=== PATIENT | male | born 1940 | race Caucasian/White ===

== ENCOUNTER 2018-06-17 17:00 | Inpatient (IN) | payer MEDICARE, MEDICAID ==
[~2018-06-17] VITALS: Ht 170.2 cm; Wt 83.2 kg
[2018-06-17] MEDS ORDERED: FUROSEMIDE20 MG PO (17:10)
[2018-06-17 20:01] LABS: BASOPHILS 0.2 % (0-2); EOSINOPHILS 0.1 % (0-7); HEMATOCRIT 33.7 % (42.0-54.0); HEMOGLOBIN 11.2 g/dL (13.5-17.5); IMMATURE GRANULOCYTES 0.2 % (0-5); LYMPHOCYTES 8.9 % (15-50); MCHC 33.2 g/dL (31.0-37.0); MCV 87.3 fL (80.0-100.0); MEAN PLATELET VOLUME 12.2 fL (7.4-10.4); MONOCYTES 4.7 % (2-11); NEUTROPHILS 85.9 % (40-80); PLATELET COUNT 178 10x3/uL (130-400); RBC 3.86 10x6/uL (4.20-6.10); RDW 14.8 % (11.5-14.5); WBC 12.1 10x3/uL (4.8-10.8)
[2018-06-17 20:18] LABS: ALBUMIN 3.5 g/dL (3.4-5.0); BILIRUBIN - TOTAL 0.46 mg/dL (0.2-1.3); CALCIUM 8.7 mg/dL (8.5-10.1); CARBON DIOXIDE 27.1 mmol/L (21.0-32.0); CREATININE - SERUM 4.3 mg/dL (0.6-1.3)
[2018-06-17 20:28] LABS: ANION GAP 14.1 mmol/L (8-16); PROTEIN - SERUM 3.5 g/dL (6.4-8.2)
[2018-06-17 20:29] LABS: POTASSIUM - SERUM 6.2 mmol/L (3.5-5.1)
[2018-06-17 20:38] LABS: INR 1.09 (0.85-1.17); PROTIME 13.7 SECONDS (11.6-15.0)
[2018-06-17 20:46] LABS: D-DIMER-QUANTITATIVE 7.31 ug/mLFEU (0.20-0.54)
[2018-06-17 20:55] LABS: PRO BNP 1217 pg/mL (0-450)
[2018-06-17 20:58] LABS: TROPONIN-I 0.287 ng/mL (0.000-0.060)
[2018-06-17 21:00] LABS: APPEARANCE CLEAR (CLEAR); BILIRUBIN NEGATIVE (NEGATIVE); COLOR YELLOW (YELLOW); GLUCOSE NEGATIVE (NEGATIVE); KETONE NEGATIVE (NEGATIVE); NITRITE NEGATIVE (NEGATIVE); PROTEIN NEGATIVE (NEGATIVE); SPECIFIC GRAVITY 1.015 (1.005-1.020); UROBILINOGEN NORMAL (NORMAL)
[2018-06-17 21:09] VITALS: BP 125/61
[2018-06-18] VITALS (7 sets, daily range): BP systolic 100–165; BP diastolic 41–67; BMI 34.5
[2018-06-18 02:44] LABS: BASOPHILS 0.2 % (0-2); EOSINOPHILS 0.9 % (0-7); HEMATOCRIT 30.6 % (42.0-54.0); HEMOGLOBIN 10.1 g/dL (13.5-17.5); IMMATURE GRANULOCYTES 0.1 % (0-5); MCH 28.8 pg (26.0-34.0); MCV 87.2 fL (80.0-100.0); MEAN PLATELET VOLUME 11.5 fL (7.4-10.4); MONOCYTES 8.1 % (2-11); NEUTROPHILS 72.7 % (40-80); PLATELET COUNT 162 10x3/uL (130-400); RBC 3.51 10x6/uL (4.20-6.10)
[2018-06-18 02:49] LABS: WBC 8.5 10x3/uL (4.8-10.8)
[2018-06-18 03:15] LABS: ALBUMIN 2.9 g/dL (3.4-5.0); ALKALINE PHOSPHATASE 50 U/L (46-116); ALT (SGPT) 32 U/L (10-68); BILIRUBIN - TOTAL 0.43 mg/dL (0.2-1.3); CALC OSMOLALITY 306 mosm/kg (275-300); CALCIUM 7.8 mg/dL (8.5-10.1); CARBON DIOXIDE 27.9 mmol/L (21.0-32.0); CHLORIDE - SERUM 107 mmol/L (98-107); CKMB 8.5 U/L (0.0-3.6); CREATININE - SERUM 4.1 mg/dL (0.6-1.3); GLUCOSE 121 mg/dL (74-106); SODIUM 141 mmol/L (136-145); UREA NITROGEN 83 mg/dL (7-18); eGFR NON AFRICAN AMERICAN 15 mL/min (90-120)
[2018-06-18 03:16] LABS: CREATINE KINASE 3269 UL (21-232); POTASSIUM - SERUM 5.1 mmol/L (3.5-5.1); PROTEIN - SERUM 6.6 g/dL (6.4-8.2); TROPONIN-I 0.274 ng/mL (0.000-0.060)
[2018-06-18 09:12] LABS: CKMB 6.8 U/L (0.0-3.6); MAGNESIUM - SERUM 2.7 mg/dL (1.8-2.4); PHOSPHOROUS 4.7 mg/dL (2.5-4.9)
[2018-06-18 09:14] LABS: CREATINE KINASE 3112 UL (21-232)
[2018-06-18 14:55] LABS: CKMB 5.6 U/L (0.0-3.6)
[2018-06-18 14:59] LABS: CREATINE KINASE 2830 UL (21-232)
[2018-06-18 15:00] LABS: TROPONIN-I 0.123 ng/mL (0.000-0.060)
[2018-06-18] MEDS ORDERED: LEVOXYL100 MCG PO (16:13)
[2018-06-18] MEDS ORDERED: K-TAB10 MEQ PO (16:14)
[2018-06-18] MEDS ORDERED: LISINOPRIL5 MG PO (16:15)
[2018-06-18] MEDS ORDERED: ROCALTROL0.25 MCG PO (16:15)
[2018-06-19] VITALS: BP 121/56
[2018-06-19 04:00] VITALS: BP 113/65
[2018-06-19 06:20] LABS: BASOPHILS 0.4 % (0-2); EOSINOPHILS 4.8 % (0-7); HEMATOCRIT 33.6 % (42.0-54.0); HEMOGLOBIN 10.9 g/dL (13.5-17.5); IMMATURE GRANULOCYTES 0.3 % (0-5); LYMPHOCYTES 20.1 % (15-50); MCH 28.8 pg (26.0-34.0); MCHC 32.4 g/dL (31.0-37.0); MCV 88.7 fL (80.0-100.0); MONOCYTES 6.2 % (2-11); NEUTROPHILS 68.2 % (40-80); PLATELET COUNT 180 10x3/uL (130-400); RBC 3.79 10x6/uL (4.20-6.10); RDW 15.6 % (11.5-14.5); WBC 7.9 10x3/uL (4.8-10.8)
[2018-06-19 06:38] LABS: ALBUMIN 3.2 g/dL (3.4-5.0); ANION GAP 10.4 mmol/L (8-16); BILIRUBIN - TOTAL 0.51 mg/dL (0.2-1.3); CALCIUM 8.1 mg/dL (8.5-10.1); CARBON DIOXIDE 26.3 mmol/L (21.0-32.0); CREATININE - SERUM 2.8 mg/dL (0.6-1.3); MAGNESIUM - SERUM 2.6 mg/dL (1.8-2.4); POTASSIUM - SERUM 4.7 mmol/L (3.5-5.1); PROTEIN - SERUM 7.3 g/dL (6.4-8.2)
[2018-06-19 08:06] VITALS: BP 118/49
[2018-06-19 11:40] VITALS: BP 121/51
[2018-06-19 13:47] VITALS: BMI 26.9
[2018-06-19 15:21] VITALS: BP 146/68
[2018-06-19 20:00] VITALS: BP 112/48
[2018-06-20] VITALS: BP 126/53
[2018-06-20 04:49] LABS: BASOPHILS 0.9 % (0-2); EOSINOPHILS 10.2 % (0-7); HEMATOCRIT 31.7 % (42.0-54.0); IMMATURE GRANULOCYTES 0.1 % (0-5); LYMPHOCYTES 27.1 % (15-50); MCH 28.2 pg (26.0-34.0); MCHC 31.5 g/dL (31.0-37.0); MCV 89.3 fL (80.0-100.0); MEAN PLATELET VOLUME 12.3 fL (7.4-10.4); MONOCYTES 7.4 % (2-11); NEUTROPHILS 54.3 % (40-80); PLATELET COUNT 179 10x3/uL (130-400); RBC 3.55 10x6/uL (4.20-6.10); RDW 15.6 % (11.5-14.5); WBC 8.1 10x3/uL (4.8-10.8)
[2018-06-20 05:40] LABS: ALBUMIN 2.9 g/dL (3.4-5.0); ANION GAP 11.3 mmol/L (8-16); BILIRUBIN - TOTAL 0.46 mg/dL (0.2-1.3); CALCIUM 7.8 mg/dL (8.5-10.1); CARBON DIOXIDE 26.8 mmol/L (21.0-32.0); CREATININE - SERUM 2.2 mg/dL (0.6-1.3); MAGNESIUM - SERUM 2.1 mg/dL (1.8-2.4); POTASSIUM - SERUM 4.1 mmol/L (3.5-5.1); PROTEIN - SERUM 6.8 g/dL (6.4-8.2)
[2018-06-20 08:11] VITALS: BP 125/50
[2018-06-20 11:31] VITALS: BP 147/45
[2018-06-20 13:11] VITALS: Ht 170.2 cm; Wt 83.2 kg
[2018-06-20 15:29] VITALS: BP 121/51
[2018-06-20 20:00] VITALS: BP 114/66
[2018-06-20 20:04] LABS: CREATINE KINASE 958 UL (21-232)
[2018-06-20 20:33] LABS: CKMB 3.2 U/L (0.0-3.6)
[2018-06-21] VITALS: BP 147/67
[2018-06-21 04:00] VITALS: BP 132/56
[2018-06-21 05:37] LABS: BASOPHILS 0.5 % (0-2); EOSINOPHILS 10.6 % (0-7); HEMATOCRIT 28.1 % (42.0-54.0); IMMATURE GRANULOCYTES 0.1 % (0-5); LYMPHOCYTES 20.2 % (15-50); MCH 28.1 pg (26.0-34.0); MCV 87.8 fL (80.0-100.0); MEAN PLATELET VOLUME 12.3 fL (7.4-10.4); MONOCYTES 8.3 % (2-11); NEUTROPHILS 60.3 % (40-80); PLATELET COUNT 165 10x3/uL (130-400); RDW 15.2 % (11.5-14.5); WBC 7.9 10x3/uL (4.8-10.8)
[2018-06-21 06:20] LABS: ALBUMIN 2.4 g/dL (3.4-5.0); ALKALINE PHOSPHATASE 46 U/L (46-116); ALT (SGPT) 23 U/L (10-68); BILIRUBIN - TOTAL 0.34 mg/dL (0.2-1.3); CALC OSMOLALITY 292 mosm/kg (275-300); CALCIUM 7.4 mg/dL (8.5-10.1); CARBON DIOXIDE 27.9 mmol/L (21.0-32.0); CHLORIDE - SERUM 112 mmol/L (98-107); CREATINE KINASE 617 UL (21-232); CREATININE - SERUM 1.8 mg/dL (0.6-1.3); GLUCOSE 97 mg/dL (74-106); MAGNESIUM - SERUM 1.9 mg/dL (1.8-2.4); POTASSIUM - SERUM 4.1 mmol/L (3.5-5.1); PROTEIN - SERUM 5.9 g/dL (6.4-8.2); SODIUM 144 mmol/L (136-145); UREA NITROGEN 29 mg/dL (7-18); eGFR NON AFRICAN AMERICAN 39 mL/min (90-120)
[2018-06-21 09:15] VITALS: BP 149/59
[2018-06-21 17:00] VITALS: BP 142/52
[2018-06-21 20:38] VITALS: BP 132/60
[2018-06-22 00:30] VITALS: BP 122/58
[2018-06-22 04:30] VITALS: BP 121/54
[2018-06-22 06:23] LABS: BASOPHILS 0.5 % (0-2); EOSINOPHILS 9.8 % (0-7); HEMATOCRIT 27.6 % (42.0-54.0); HEMOGLOBIN 8.9 g/dL (13.5-17.5); IMMATURE GRANULOCYTES 0.2 % (0-5); LYMPHOCYTES 19.4 % (15-50); MCH 28.3 pg (26.0-34.0); MCHC 32.2 g/dL (31.0-37.0); MCV 87.9 fL (80.0-100.0); MEAN PLATELET VOLUME 12.4 fL (7.4-10.4); NEUTROPHILS 62.1 % (40-80); PLATELET COUNT 184 10x3/uL (130-400); RBC 3.14 10x6/uL (4.20-6.10); RDW 15.5 % (11.5-14.5); WBC 8.6 10x3/uL (4.8-10.8)
[2018-06-22 06:54] LABS: ALBUMIN 2.4 g/dL (3.4-5.0); ANION GAP 10.8 mmol/L (8-16); BILIRUBIN - TOTAL 0.44 mg/dL (0.2-1.3); CALCIUM 7.5 mg/dL (8.5-10.1); CARBON DIOXIDE 26.1 mmol/L (21.0-32.0); CREATININE - SERUM 1.6 mg/dL (0.6-1.3); MAGNESIUM - SERUM 1.7 mg/dL (1.8-2.4); POTASSIUM - SERUM 3.9 mmol/L (3.5-5.1); PROTEIN - SERUM 5.8 g/dL (6.4-8.2)
[2018-06-22 08:51] VITALS: BP 130/57
[2018-06-22 12:20] VITALS: BP 119/65
[2018-06-22] MEDS ORDERED: FLOMAX0.4 MG PO (15:11)
[2018-06-22 16:55] VITALS: BP 127/45
== END 2018-06-22 17:46 | disposition home or self-care (01) | DRG 682 ==
LOC: D.ER 17:00 → D.EDHOLD 22:29 → D.M2 22:29 → EDBD 22:29 → D.M2 22:55
PROVIDERS: Emergency Medicine; Family Medicine
DX: N17.9 Acute kidney failure, unspecified (principal); G93.41 Metabolic encephalopathy; S22.32XA Fracture of one rib, left side, initial encounter for closed fracture; I13.0 Hypertensive heart and chronic kidney disease with heart failure and stage 1 through stage 4 chronic kidney disease, or unspecified chronic kidney disease; I50.22 Chronic systolic (congestive) heart failure; S00.83XA Contusion of other part of head, initial encounter; S50.12XA Contusion of left forearm, initial encounter; W19.XXXA Unspecified fall, initial encounter; R07.81 Pleurodynia; Z86.73 Personal history of transient ischemic attack (TIA), and cerebral infarction without residual deficits; N18.9 Chronic kidney disease, unspecified; R79.89 Other specified abnormal findings of blood chemistry; E87.5 Hyperkalemia; R41.82 Altered mental status, unspecified; K59.00 Constipation, unspecified; F03.90 Unspecified dementia, unspecified severity, without behavioral disturbance, psychotic disturbance, mood disturbance, and anxiety; D63.1 Anemia in chronic kidney disease; E83.41 Hypermagnesemia; N25.0 Renal osteodystrophy; T79.6XXA Traumatic ischemia of muscle, initial encounter; E03.9 Hypothyroidism, unspecified; N40.1 Benign prostatic hyperplasia with lower urinary tract symptoms; R33.8 Other retention of urine

== ENCOUNTER → 2018-07-02 12:08 | Outpatient (CLI) | payer MEDICARE, MEDICAID ==
[2018-06-20 13:11] VITALS: BMI 26.9
[~2018-07-02 12:08] MED LIST: FLOMAX0.4 MG PO; FUROSEMIDE20 MG PO; K-TAB10 MEQ PO; LEVOXYL100 MCG PO; LISINOPRIL5 MG PO; ROCALTROL0.25 MCG PO
== END | disposition home or self-care (01) ==
LOC: D.LABREF 12:08
DX: E87.5 Hyperkalemia (principal)

== ENCOUNTER 2018-10-07 08:08 | Inpatient (IN) | payer MEDICARE, MEDICAID ==
[~2018-10-07] VITALS: Ht 170.2 cm; Wt 72.1 kg
[2018-10-07 08:51] LABS: BASOPHILS 0.2 % (0-2); EOSINOPHILS 0.2 % (0-7); HEMATOCRIT 33.7 % (42.0-54.0); IMMATURE GRANULOCYTES 0.2 % (0-5); LYMPHOCYTES 6.7 % (15-50); MCH 29.7 pg (26.0-34.0); MCHC 32.6 g/dL (31.0-37.0); MCV 91.1 fL (80.0-100.0); MEAN PLATELET VOLUME 11.6 fL (7.4-10.4); MONOCYTES 2.4 % (2-11); NEUTROPHILS 90.3 % (40-80); RDW 14.4 % (11.5-14.5); WBC 11.1 10x3/uL (4.8-10.8)
[2018-10-07 08:55] LABS: PLATELET COUNT 261 10x3/uL (130-400)
[2018-10-07 08:56] LABS: ALBUMIN 3.1 g/dL (3.4-5.0); ALKALINE PHOSPHATASE 80 U/L (46-116); ALT (SGPT) 14 U/L (10-68); BILIRUBIN - TOTAL 0.32 mg/dL (0.2-1.3); CALC OSMOLALITY 295 mosm/kg (275-300); CALCIUM 8.2 mg/dL (8.5-10.1); CARBON DIOXIDE 26.2 mmol/L (21.0-32.0); CHLORIDE - SERUM 102 mmol/L (98-107); CREATININE - SERUM 2.4 mg/dL (0.6-1.3); GLUCOSE 134 mg/dL (74-106); PROTEIN - SERUM 8.3 g/dL (6.4-8.2); SODIUM 139 mmol/L (136-145); UREA NITROGEN 57 mg/dL (7-18); eGFR NON AFRICAN AMERICAN 28 mL/min (90-120)
[2018-10-07 09:04] LABS: APPEARANCE HAZY (CLEAR); BACTERIA MANY /hpf (NONE SEEN); BILIRUBIN NEGATIVE (NEGATIVE); COLOR YELLOW (YELLOW); EPITHELIAL CELLS RARE /hpf (0-5); GLUCOSE NEGATIVE (NEGATIVE); KETONE NEGATIVE (NEGATIVE); NITRITE NEGATIVE (NEGATIVE); PROTEIN NEGATIVE (NEGATIVE); RED CELLS - URINE RARE /hpf (0-5); SPECIFIC GRAVITY 1.005 (1.005-1.020); UROBILINOGEN NORMAL (NORMAL); WHITE CELLS - URINE 25-50 /hpf (0-5)
[2018-10-07 09:07] LABS: AMYLASE - SERUM 102 U/L (25-115); CKMB 1.1 U/L (0.0-3.6); CREATINE KINASE 71 UL (21-232); LIPASE 240 U/L (73-393); TROPONIN-I < 0.017 ng/mL (0.000-0.060)
--- NOTE | 2018-10-07 11:15 | MORECARE ---
CASE MANAGEMENT DISCHARGE SUMMARY PATIENT: FRANCISCO JAVIER LARES UNIT: [id number] ADM DATE: 10/07/18 AGE: 78 : 41 SEX: M ROOM/BED: D.E06 AUTHOR: DIDI MARTINEZ PHYSICIAN: REFERRING PHYSICIAN: PAIGE AGUIRRE MD DATE OF SERVICE: 10/07/18 Discharge Plan Patient Name: FRANCISCO JAVIER LARES [facility] [facility] 1940 Planned Disposition: Anticipated Discharge Date: Discharge Date: Expected LOS: Initial Reviewer: [email or web address] Initial Review Date: 10/07/2018 Generated: 10/07/18 12:15 pm Patient Name: FRANCISCO JAVIER LARES Page [phone] at 1115 All edits/amendments must be made on the electronic document DICTATION DATE: 10/07/18 111 LIP CUTTER AND SCORER: MANJIT 10/07/18 111 RPT#: [id number] DC DATE: STATUS: ADM IN [facility] [address] [place] [address] END OF REPORT
--- NOTE | 2018-10-07 11:22 | MORECARE ---
CASE MANAGEMENT DISCHARGE SUMMARY PATIENT: FRANCISCO JAVIER LARES UNIT: [id number] ADM DATE: 10/07/18 AGE: 78 : 41 SEX: M ROOM/BED: D.2235 AUTHOR: DIDI MARTINEZ PHYSICIAN: REFERRING PHYSICIAN: PAIGE AGUIRRE MD DATE OF SERVICE: 10/07/18 Discharge Plan Patient Name: FRANCISCO JAVIER LARES [facility] [facility] 1940 Planned Disposition: Anticipated Discharge Date: Discharge Date: Expected LOS: Initial Reviewer: [email or web address] Initial Review Date: 10/07/2018 Generated: 10/07/18 12:22 pm DCPIA - Discharge Planning Initial Assessment Updated by [email or web address]: Alee Nuñez on 10/07/18 11:19 am * Is the patient Alert and Oriented? Yes * How many steps to enter\exit or inside your home? * PCP Dr. Frank * Pharmacy [facility], w/delivery * Preadmission Environment Home Alone * ADLs Partial Dependent * Partial ADLs (Assistance needed) Bathing Dressing * Equipment Cane * Other Equipment States he has 2 canes, O2 but does not use it * Community resources currently utilized Private Duty Care * Please name any agencies selected above. Patient could not remember the name of Agency. * Can the patient safely return to the preadmission environment? Yes * Has this patient been hospitalized within the prior 30 days at any hospital? No Last DP export: 10/07/18 10:15 Patient Name: FRANCISCO JAVIER LARES Page 61628 at 1122 All edits/amendments must be made on the electronic document DICTATION DATE: 10/07/18 112 REGISTERED NURSE CARDIAC TELEMETRY: MANJIT 10/07/18 112 RPT#: [id number] DC DATE: STATUS: ADM IN [facility] [address] [place] [address] END OF REPORT
--- NOTE | 2018-10-07 11:36 | MORECARE ---
CASE MANAGEMENT DISCHARGE SUMMARY PATIENT: FRANCISCO JAVIER LARES UNIT: [id number] ADM DATE: 10/07/18 AGE: 78 : 41 SEX: M ROOM/BED: D.2235 AUTHOR: DIDI MARTINEZ PHYSICIAN: REFERRING PHYSICIAN: PAIGE AGUIRRE MD DATE OF SERVICE: 10/07/18 Discharge Plan Patient Name: FRANCISCO JAVIER LARES [facility] : 1940 Planned Disposition: Anticipated Discharge Date: Discharge Date: Expected LOS: Initial Reviewer: [email or web address] Initial Review Date: 10/07/2018 Generated: 10/07/18 12:36 pm DCP- Discharge Planning Updated by [email or web address]: Alee Nuñez on 10/07/18 10:[address] CM met with patient regarding DC needs/planning. Patient states he lives at the [facility] on the 11th floor, uses elevator to go to his apartment. PCP: Dr. Frank. Pharmacy: [facility], w/delivery. HHS: No. Private healthcare translator: Christine Dickson #[phone]. Patient requires assistance with bathing/dressing. DME: 2 canes, Walker. Voices no other needs @this time. CM will follow and assist with DC needs/plans PRN. Alee Nuñez RN CM DCPIA - Discharge Planning Initial Assessment Updated by [email or web address]: Alee Nuñez on 10/07/18 11:19 am * Is the patient Alert and Oriented? Yes * How many steps to enter\exit or inside your home? * PCP Dr. Frank * Pharmacy [facility], w/delivery * Preadmission Environment Home Alone * ADLs Partial Dependent * Partial ADLs (Assistance needed) Bathing Dressing * Equipment Cane * Other Equipment States he has 2 canes, O2 but does not use it * Community resources currently utilized Private Duty Care * Please name any agencies selected above. Patient could not remember the name of Agency. * Can the patient safely return to the preadmission environment? Yes * Has this patient been hospitalized within the prior 30 days at any hospital? No Last DP export: 10/07/18 10:22 Patient Name: FRANCISCO JAVIER LARES Page [phone] at 1136 All edits/amendments must be made on the electronic document DICTATION DATE: 10/07/181134 PACU NURSE: MANJIT 10/07/181134 RPT#: [id number] DC DATE: STATUS: ADM IN [facility] [address] [place] [address] END OF REPORT
[2018-10-07 12:04] VITALS: BP 132/59; BMI 26.7
[2018-10-07 17:12] VITALS: BP 123/56
[2018-10-07 21:01] VITALS: BP 122/54
[2018-10-08 01:39] VITALS: BP 154/64
[2018-10-08 05:58] VITALS: BP 108/44
[2018-10-08 06:23] LABS: BASOPHILS 0.1 % (0-2); EOSINOPHILS 0 % (0-7); HEMATOCRIT 33.8 % (42.0-54.0); HEMOGLOBIN 10.9 g/dL (13.5-17.5); IMMATURE GRANULOCYTES 0.2 % (0-5); LYMPHOCYTES 6.3 % (15-50); MCH 29.4 pg (26.0-34.0); MCHC 32.2 g/dL (31.0-37.0); MCV 91.1 fL (80.0-100.0); MEAN PLATELET VOLUME 12.1 fL (7.4-10.4); NEUTROPHILS 90.4 % (40-80); PLATELET COUNT 281 10x3/uL (130-400); RBC 3.71 10x6/uL (4.20-6.10); RDW 14.8 % (11.5-14.5)
[2018-10-08 06:31] LABS: WBC 17.2 10x3/uL (4.8-10.8)
[2018-10-08 06:43] LABS: ALBUMIN 2.6 g/dL (3.4-5.0); ANION GAP 16.7 mmol/L (8-16); BILIRUBIN - TOTAL 0.48 mg/dL (0.2-1.3); CALCIUM 8.1 mg/dL (8.5-10.1); CARBON DIOXIDE 25.6 mmol/L (21.0-32.0); CREATININE - SERUM 2.6 mg/dL (0.6-1.3); PROTEIN - SERUM 7.6 g/dL (6.4-8.2)
[2018-10-08 06:44] LABS: POTASSIUM - SERUM 5.3 mmol/L (3.5-5.1)
[2018-10-08 08:48] VITALS: BP 90/47
[2018-10-08 12:45] VITALS: BP 92/48; BP 94/54
[2018-10-08 13:00] VITALS: BMI 26.6
[2018-10-08 16:46] VITALS: BP 134/53
[2018-10-08 21:25] VITALS: BP 90/44
[2018-10-09 04:23] VITALS: BP 99/46
[2018-10-09 04:28] LABS: BASOPHILS 0.1 % (0-2); EOSINOPHILS 0.1 % (0-7); HEMATOCRIT 31.4 % (42.0-54.0); HEMOGLOBIN 10.3 g/dL (13.5-17.5); IMMATURE GRANULOCYTES 0.3 % (0-5); LYMPHOCYTES 4.4 % (15-50); MCH 29.3 pg (26.0-34.0); MCHC 32.8 g/dL (31.0-37.0); MCV 89.5 fL (80.0-100.0); MEAN PLATELET VOLUME 11.7 fL (7.4-10.4); MONOCYTES 1.4 % (2-11); NEUTROPHILS 93.7 % (40-80); PLATELET COUNT 270 10x3/uL (130-400); RBC 3.51 10x6/uL (4.20-6.10)
[2018-10-09 04:43] LABS: ALBUMIN 2.2 g/dL (3.4-5.0); ANION GAP 13.9 mmol/L (8-16); BILIRUBIN - TOTAL 0.47 mg/dL (0.2-1.3); CALCIUM 7.7 mg/dL (8.5-10.1); CARBON DIOXIDE 26.2 mmol/L (21.0-32.0); CREATININE - SERUM 3.2 mg/dL (0.6-1.3); POTASSIUM - SERUM 5.1 mmol/L (3.5-5.1); PROTEIN - SERUM 6.7 g/dL (6.4-8.2)
[2018-10-09 08:30] VITALS: BP 124/54
--- NOTE | 2018-10-09 09:34 | MORECARE ---
CASE MANAGEMENT DISCHARGE SUMMARY PATIENT: FRANCISCO JAVIER LÓPEZ UNIT: [id number] ADM DATE: 10/07/18 AGE: 78 : 41 SEX: M ROOM/BED: D.2235 AUTHOR: JUAN,DOC PHYSICIAN: REFERRING PHYSICIAN: PAIGE AGUIRRE MD DATE OF SERVICE: 10/09/18 Discharge Plan Patient Name: FRANCISCO JAVIER LÓPEZ [facility] [facility] 1940 Planned Disposition: Anticipated Discharge Date: Discharge Date: Expected LOS: Initial Reviewer: [email or web address] Initial Review Date: 10/07/2018 Generated: 10/09/18 10:34 am Comments DCP- Discharge Planning Updated by [email or web address]: Lucero Ramos on 10/09/18 8:[address] Spoke with patient regarding family contact. He does have a sister in law (Lindsey López) but is unable to tell me her phone number. I called information for a phone number in [place] (patient states she lives there) and their is no listing. I called his caregivers non medical, Christine Dickson at [phone] and she does not have a family contact and she is not his POA. I called Dr. Frank's office and have left a message to return call. CM will continue to follow and assist with discharge planning/needs. DCP- Discharge Planning Updated by [email or web address]: Alee Nuñez on 10/07/18 10:[address] CM met with patient regarding DC needs/planning. Patient states he lives at the [facility] on the 11th floor, uses elevator to go to his apartment. PCP: Dr. Frank. Pharmacy: [facility], w/delivery. HHS: No. Private care associate: Christine Randolph #[phone]. Patient requires assistance with bathing/dressing. DME: 2 canes, Walker. Voices no other needs @this time. CM will follow and assist with DC needs/plans PRN. Alee Nuñez RN, CM DCPIA - Discharge Planning Initial Assessment Updated by [email or web address]: Alee Nuñez on 10/07/18 11:19 am * Is the patient Alert and Oriented? Yes * How many steps to enter\exit or inside your home? * PCP Dr. Frank * Pharmacy [facility], w/delivery * Preadmission Environment Home Alone * ADLs Partial Dependent * Partial ADLs (Assistance needed) Bathing Dressing * Equipment Cane * Other Equipment States he has 2 canes, O2 but does not use it * Community resources currently utilized Private Duty Care * Please name any agencies selected above. Patient could not remember the name of Agency. * Can the patient safely return to the preadmission environment? Yes * Has this patient been hospitalized within the prior 30 days at any hospital? No Last DP export: 10/07/18 10:36 Patient Name: FRANCISCO JAVIER LÓPEZ Page 16828 at 0934 All edits/amendments must be made on the electronic document DICTATION DATE: 10/09/18933 SENIOR QUALITY ASSURANCE ANALYST: MANJIT 10/09/18933 RPT#: [id number] DC DATE: STATUS: ADM IN [facility] [address] [place] [address] END OF REPORT
--- NOTE | 2018-10-09 11:17 | MORECARE ---
CASE MANAGEMENT DISCHARGE SUMMARY PATIENT: FRANCISCO JAVIER LÓPEZ UNIT: [id number] ADM DATE: 10/07/18 AGE: 78 : 41 SEX: M ROOM/BED: D.2235 AUTHOR: JUAN,DOC PHYSICIAN: REFERRING PHYSICIAN: PAIGE AGUIRRE MD DATE OF SERVICE: 10/09/18 Discharge Plan Patient Name: FRANCISCO JAVIER LÓPEZ Facility: [facility]:[place] : 1940 Planned Disposition: Anticipated Discharge Date: Discharge Date: Expected LOS: Initial Reviewer: [email or web address] Initial Review Date: 10/07/2018 Generated: 10/09/18 12:17 pm Comments DCP- Discharge Planning Updated by [email or web address]: Lucero Ramos on 10/09/18 10:[address] I called Christine Dickson again, his private rehab care assistant, to ask what company she works for. She works for [employer]. [employer] does not have any family contact listed. Christine states he has told me he has family contacts in his [place], but he does not. I called Dr. Frank's office again and reached the answering machine again and informed them of the urgency of trying to find contact information and my call back number. CM will continue to follow and assist with discharge planning/needs. DCP- Discharge Planning Updated by [email or web address]: Lucero Ramos on 10/09/18 8:[address] Spoke with patient regarding family contact. He does have a sister in law (Lindsey López) but is unable to tell me her phone number. I called information for a phone number in [place] (patient states she lives there) and their is no listing. I called his rehab care assistant, Christine Dickson at [phone] and she does not have a family contact and she is not his POA. I called Dr. Frank's office and have left a message to return call. CM will continue to follow and assist with discharge planning/needs. DCP- Discharge Planning Updated by [email or web address]: Alee Nuñez on 10/07/18 10:[address] CM met with patient regarding DC needs/planning. Patient states he lives at the [facility] on the 11th floor, uses elevator to go to his apartment. PCP: Dr. Frank. Pharmacy: [facility], w/delivery. HHS: No. Private manager care: Christine Dickson #[phone]. Patient requires assistance with bathing/dressing. DME: 2 canes, Walker. Voices no other needs @this time. CM will follow and assist with DC needs/plans PRN. Alee Nuñez RN CM DCPIA - Discharge Planning Initial Assessment Updated by [email or web address]: Alee Nuñez on 10/07/18 11:19 am * Is the patient Alert and Oriented? Yes * How many steps to enter\exit or inside your home? * PCP Dr. Frank * Pharmacy [facility], w/delivery * Preadmission Environment Home Alone * ADLs Partial Dependent * Partial ADLs (Assistance needed) Bathing Dressing * Equipment Cane * Other Equipment States he has 2 canes, O2 but does not use it * Community resources currently utilized Private Duty Care * Please name any agencies selected above. Patient could not remember the name of Agency. * Can the patient safely return to the preadmission environment? Yes * Has this patient been hospitalized within the prior 30 days at any hospital? No Last DP export: 10/09/18 8:34 Patient Name: FRANCISCO JAVIER LÓPEZ Page 95725 at 1117 All edits/amendments must be made on the electronic document DICTATION DATE: 10/09/181115 ACTIVITIES COORDINATOR: MANJIT 10/09/181115 RPT#: [id number] DC DATE: STATUS: ADM IN [facility] [address] [place] [address] END OF REPORT
[2018-10-09 12:32] VITALS: BP 135/59
[2018-10-09 16:48] VITALS: BP 140/75
[2018-10-09 19:02] VITALS: BP 124/59
[2018-10-09 21:19] VITALS: BP 138/77
[2018-10-10 05:07] VITALS: BP 143/64
[2018-10-10 05:11] LABS: BASOPHILS 0.1 % (0-2); EOSINOPHILS 0.1 % (0-7); HEMOGLOBIN 10.5 g/dL (13.5-17.5); IMMATURE GRANULOCYTES 0.3 % (0-5); LYMPHOCYTES 4.2 % (15-50); MCH 29.7 pg (26.0-34.0); MCHC 32.8 g/dL (31.0-37.0); MCV 90.4 fL (80.0-100.0); MEAN PLATELET VOLUME 11.5 fL (7.4-10.4); MONOCYTES 2.9 % (2-11); NEUTROPHILS 92.4 % (40-80); PLATELET COUNT 293 10x3/uL (130-400); RBC 3.54 10x6/uL (4.20-6.10); RDW 14.9 % (11.5-14.5); WBC 20.7 10x3/uL (4.8-10.8)
[2018-10-10 05:14] LABS: ALBUMIN 1.9 g/dL (3.4-5.0); ANION GAP 15.4 mmol/L (8-16); BILIRUBIN - TOTAL 0.58 mg/dL (0.2-1.3); CALCIUM 8.4 mg/dL (8.5-10.1); CARBON DIOXIDE 26.4 mmol/L (21.0-32.0); CREATININE - SERUM 2.5 mg/dL (0.6-1.3); POTASSIUM - SERUM 4.8 mmol/L (3.5-5.1); PROTEIN - SERUM 6.5 g/dL (6.4-8.2)
[2018-10-10 08:48] VITALS: BP 145/66
--- NOTE | 2018-10-10 15:27 | MORECARE ---
CASE MANAGEMENT DISCHARGE SUMMARY PATIENT: FRANCISCO JAVIER LÓPEZ UNIT: [id number] ADM DATE: 10/07/18 AGE: 78 : 41 SEX: M ROOM/BED: D.2235 AUTHOR: JUAN,DOC PHYSICIAN: REFERRING PHYSICIAN: PAIGE AGUIRRE MD DATE OF SERVICE: 10/10/18 Discharge Plan Patient Name: FRANCISCO JAVIER LÓPEZ Facility: [facility]:[place] : 1940 Planned Disposition: Anticipated Discharge Date: Discharge Date: Expected LOS: Initial Reviewer: [email or web address] Initial Review Date: 10/07/2018 Generated: 10/10/18 4:27 pm Comments DCP- Discharge Planning Updated by [email or web address]: Lucero Ramos on 10/10/18 2:[address] Spoke with Dr. Sahu and informed that we have been unable to locate family. Dr. Frank's office also has no phone number for Lindsey (sister in law). Policy is for the physician to sign the consent. CM will continue to follow and assist with discharge planning/needs. DCP- Discharge Planning Updated by [email or web address]: Lucero Ramos on 10/09/18 10:[address] I called Christine Dickson again, his private urgent care physician assistant, to ask what company she works for. She works for [employer]. [employer] does not have any family contact listed. Christine states he has told me he has family contacts in his [place], but he does not. I called Dr. Frank's office again and reached the answering machine again and informed them of the urgency of trying to find contact information and my call back number. CM will continue to follow and assist with discharge planning/needs. DCP- Discharge Planning Updated by [email or web address]: Lucero Ramos on 10/09/18 8:[address] Spoke with patient regarding family contact. He does have a sister in law (Lindsey López) but is unable to tell me her phone number. I called information for a phone number in [place] (patient states she lives there) and their is no listing. I called his urgent care physician assistant, Christine Dickson at [phone] and she does not have a family contact and she is not his POA. I called Dr. Frank's office and have left a message to return call. CM will continue to follow and assist with discharge planning/needs. DCP- Discharge Planning Updated by [email or web address]: Alee Nuñez on 10/07/18 10:[address] CM met with patient regarding DC needs/planning. Patient states he lives at the [facility] on the 11th floor, uses elevator to go to his apartment. PCP: Dr. Frank. Pharmacy: [facility], w/delivery. HHS: No. Private acute care physician: Christine Dickson #[phone]. Patient requires assistance with bathing/dressing. DME: 2 canes, Walker. Voices no other needs @this time. CM will follow and assist with DC needs/plans PRN. Alee Nuñez RN CM DCPIA - Discharge Planning Initial Assessment Updated by [email or web address]: Alee Nuñez on 10/07/18 11:19 am * Is the patient Alert and Oriented? Yes * How many steps to enter\exit or inside your home? * PCP Dr. Frank * Pharmacy [facility], w/delivery * Preadmission Environment Home Alone * ADLs Partial Dependent * Partial ADLs (Assistance needed) Bathing Dressing * Equipment Cane * Other Equipment States he has 2 canes, O2 but does not use it * Community resources currently utilized Private Duty Care * Please name any agencies selected above. Patient could not remember the name of Agency. * Can the patient safely return to the preadmission environment? Yes * Has this patient been hospitalized within the prior 30 days at any hospital? No Last DP export: 10/09/18 10:17 Patient Name: FRANCISCO JAVIER LÓPEZ Page [phone] at 1527 All edits/amendments must be made on the electronic document DICTATION DATE: 10/10/18 1526 PHOTOENGRAVING PROOFER APPRENTICE: MANJIT 10/10/18 152 RPT#: [id number] DC DATE: STATUS: ADM IN [facility] [address] [place] [address] END OF REPORT
[2018-10-10 15:39] VITALS: BP 145/66
[2018-10-10 16:43] VITALS: BP 137/68
--- NOTE | 2018-10-10 17:06 | MORECARE ---
CASE MANAGEMENT DISCHARGE SUMMARY PATIENT: FRANCISCO JVAIER LÓPEZ UNIT: [id number] ADM DATE: 10/07/18 AGE: 78 : 41 SEX: M ROOM/BED: D.2235 AUTHOR: JUAN,DOC PHYSICIAN: REFERRING PHYSICIAN: PAIGE AGUIRRE MD DATE OF SERVICE: 10/10/18 Discharge Plan Patient Name: FRANCISCO JAVIER LÓPEZ Facility: [facility]:[place] : 1940 Planned Disposition: Anticipated Discharge Date: Discharge Date: Expected LOS: Initial Reviewer: [email or web address] Initial Review Date: 10/07/2018 Generated: 10/10/18 6:05 pm Comments DCP- Discharge Planning Updated by [email or web address]: Lucero Richard on 10/10/18 3:[address] Spoke with Katelin and she agrees with need for emergent surgery. I called OR and spoke through Chapo in Dr. Sahu's procedure that Katelin agrees with need for emergent surgery. I informed that policy is if the person legally authorized to give consent is incapable of consenting or cannot be contacted, the the treating physician shall document the nature of the emergency in the medical record and proceed with the surgery. CM will continue to follow. DCP- Discharge Planning Updated by [email or web address]: Lucero Richard on 10/10/18 2:[address] Spoke with Dr. Sahu and informed that we have been unable to locate family. Dr. Frank's office also has no phone number for Lindsey (sister in law). Policy is for the physician to sign the consent. CM will continue to follow and assist with discharge planning/needs. DCP- Discharge Planning Updated by [email or web address]: Lucero Richard on 10/09/18 10:[address] I called Christine Randolph again, his private career technical counselor, to ask what company she works for. She works for [employer]. [employer] does not have any family contact listed. Christine states he has told me he has family contacts in his [place], but he does not. I called Dr. Frank's office again and reached the answering machine again and informed them of the urgency of trying to find contact information and my call back number. CM will continue to follow and assist with discharge planning/needs. DCP- Discharge Planning Updated by [email or web address]: Lucero Ramos on 10/09/18 8:[address] Spoke with patient regarding family contact. He does have a sister in law (Lindsey López) but is unable to tell me her phone number. I called information for a phone number in [place] (patient states she lives there) and their is no listing. I called his career technical counselor, Christine Dickson at [phone] and she does not have a family contact and she is not his POA. I called Dr. Frank's office and have left a message to return call. CM will continue to follow and assist with discharge planning/needs. DCP- Discharge Planning Updated by [email or web address]: Alee Nuñez on 10/07/18 10:[address] CM met with patient regarding DC needs/planning. Patient states he lives at the [facility] on the 11th floor, uses elevator to go to his apartment. PCP: Dr. Frank. Pharmacy: [facility], w/delivery. HHS: No. Private caregiver services home: Christine Dickson #[phone]. Patient requires assistance with bathing/dressing. DME: 2 canes, Walker. Voices no other needs @this time. CM will follow and assist with DC needs/plans PRN. Alee Nuñez RN CM DCPIA - Discharge Planning Initial Assessment Updated by [email or web address]: Alee Nuñez on 10/07/18 11:19 am * Is the patient Alert and Oriented? Yes * How many steps to enter\exit or inside your home? * PCP Dr. Frank * Pharmacy [facility], w/delivery * Preadmission Environment Home Alone * ADLs Partial Dependent * Partial ADLs (Assistance needed) Bathing Dressing * Equipment Cane * Other Equipment States he has 2 canes, O2 but does not use it * Community resources currently utilized Private Duty Care * Please name any agencies selected above. Patient could not remember the name of Agency. * Can the patient safely return to the preadmission environment? Yes * Has this patient been hospitalized within the prior 30 days at any hospital? No Last DP export: 10/10/18 2:27 Patient Name: FRANCISCO JAVIER LÓPEZ Page [phone] at 1706 All edits/amendments must be made on the electronic document DICTATION DATE: 10/10/181704 CHEMICAL RESEARCH ENGINEER: MANJIT 10/10/181704 RPT#: [id number] DC DATE: STATUS: ADM IN [facility] [address] [place] [address] END OF REPORT
[2018-10-10 21:15] VITALS: BP 144/74
[2018-10-11 05:15] VITALS: BP 151/89
[2018-10-11 05:45] LABS: BASOPHILS 0.1 % (0-2); EOSINOPHILS 1.8 % (0-7); HEMATOCRIT 34.3 % (42.0-54.0); IMMATURE GRANULOCYTES 0.3 % (0-5); LYMPHOCYTES 4.4 % (15-50); MCH 29.3 pg (26.0-34.0); MCHC 32.1 g/dL (31.0-37.0); MCV 91.2 fL (80.0-100.0); MEAN PLATELET VOLUME 11.2 fL (7.4-10.4); MONOCYTES 6.5 % (2-11); NEUTROPHILS 86.9 % (40-80); PLATELET COUNT 327 10x3/uL (130-400); RBC 3.76 10x6/uL (4.20-6.10); RDW 14.7 % (11.5-14.5); WBC 17.9 10x3/uL (4.8-10.8)
[2018-10-11 06:08] LABS: ALBUMIN 1.8 g/dL (3.4-5.0); BILIRUBIN - TOTAL 0.45 mg/dL (0.2-1.3); CALCIUM 8.5 mg/dL (8.5-10.1); CARBON DIOXIDE 28.6 mmol/L (21.0-32.0); POTASSIUM - SERUM 4.6 mmol/L (3.5-5.1); PROTEIN - SERUM 6.4 g/dL (6.4-8.2)
[2018-10-11 06:09] LABS: CREATININE - SERUM 1.8 mg/dL (0.6-1.3)
[2018-10-11 10:08] VITALS: BP 140/74
[2018-10-11 14:01] VITALS: BP 156/107
[2018-10-11 17:24] VITALS: BP 138/75
[2018-10-11 20:51] VITALS: BP 149/74
[2018-10-11 22:04] VITALS: BP 143/94
[2018-10-12 01:52] VITALS: BP 149/65
[2018-10-12 05:05] VITALS: BP 143/77
[2018-10-12 06:05] LABS: BASOPHILS 0.1 % (0-2); HEMATOCRIT 33.2 % (42.0-54.0); HEMOGLOBIN 10.8 g/dL (13.5-17.5); IMMATURE GRANULOCYTES 0.4 % (0-5); LYMPHOCYTES 6.8 % (15-50); MCH 29.5 pg (26.0-34.0); MCHC 32.5 g/dL (31.0-37.0); MCV 90.7 fL (80.0-100.0); MONOCYTES 9.6 % (2-11); NEUTROPHILS 80.1 % (40-80); PLATELET COUNT 346 10x3/uL (130-400); RBC 3.66 10x6/uL (4.20-6.10); RDW 14.4 % (11.5-14.5); WBC 13.8 10x3/uL (4.8-10.8)
[2018-10-12 06:29] LABS: ALBUMIN 1.8 g/dL (3.4-5.0); BILIRUBIN - TOTAL 0.58 mg/dL (0.2-1.3); CALCIUM 8.2 mg/dL (8.5-10.1); CARBON DIOXIDE 28.2 mmol/L (21.0-32.0); CREATININE - SERUM 1.6 mg/dL (0.6-1.3); POTASSIUM - SERUM 4.2 mmol/L (3.5-5.1); PROTEIN - SERUM 5.3 g/dL (6.4-8.2)
[2018-10-12 08:33] VITALS: BP 136/76
[2018-10-12 13:07] VITALS: BP 143/82
[2018-10-12 14:08] VITALS: BP 143/82
[2018-10-12 16:48] VITALS: BP 130/63
[2018-10-13] VITALS (21 sets, daily range): BP systolic 103–143; BP diastolic 60–99; Ht 170.2 cm; Wt 72.1 kg
[2018-10-13 03:59] LABS: BASOPHILS 0.1 % (0-2); EOSINOPHILS 0.7 % (0-7); HEMATOCRIT 35.8 % (42.0-54.0); HEMOGLOBIN 11.6 g/dL (13.5-17.5); IMMATURE GRANULOCYTES 0.6 % (0-5); LYMPHOCYTES 4.5 % (15-50); MCH 29.4 pg (26.0-34.0); MCHC 32.4 g/dL (31.0-37.0); MCV 90.6 fL (80.0-100.0); MEAN PLATELET VOLUME 11.1 fL (7.4-10.4); MONOCYTES 7.8 % (2-11); NEUTROPHILS 86.3 % (40-80); PLATELET COUNT 395 10x3/uL (130-400); RBC 3.95 10x6/uL (4.20-6.10); RDW 14.5 % (11.5-14.5)
[2018-10-13 04:08] LABS: WBC 17.6 10x3/uL (4.8-10.8)
[2018-10-13 04:31] LABS: ALBUMIN 1.5 g/dL (3.4-5.0); ALKALINE PHOSPHATASE 49 U/L (46-116); BILIRUBIN - TOTAL 0.47 mg/dL (0.2-1.3); CALC OSMOLALITY 304 mosm/kg (275-300); CALCIUM 7.5 mg/dL (8.5-10.1); CARBON DIOXIDE 23.7 mmol/L (21.0-32.0); CHLORIDE - SERUM 112 mmol/L (98-107); CREATININE - SERUM 1.6 mg/dL (0.6-1.3); GLUCOSE 101 mg/dL (74-106); PHOSPHOROUS 4.1 mg/dL (2.5-4.9); POTASSIUM - SERUM 4.5 mmol/L (3.5-5.1); PROTEIN - SERUM 5.5 g/dL (6.4-8.2); SODIUM 147 mmol/L (136-145); TROPONIN-I < 0.017 ng/mL (0.000-0.060); UREA NITROGEN 48 mg/dL (7-18); eGFR NON AFRICAN AMERICAN 45 mL/min (90-120)
[2018-10-13 04:36] LABS: ALT (SGPT) 14 U/L (10-68)
--- NOTE | 2018-10-13 14:17 | MORECARE ---
CASE MANAGEMENT DISCHARGE SUMMARY PATIENT: FRANCISCO JAVIER LÓPEZ UNIT: [id number] ADM DATE: 10/07/18 AGE: 78 : 41 SEX: M ROOM/BED: D.2302 AUTHOR: JUAN,DOC PHYSICIAN: REFERRING PHYSICIAN: PAIGE AGUIRRE MD DATE OF SERVICE: 10/13/18 Discharge Plan Patient Name: FRANCISCO JAVIER LÓPEZ Facility: [facility]:[place] : 1940 Planned Disposition: Anticipated Discharge Date: Discharge Date: Expected LOS: Initial Reviewer: [email or web address] Initial Review Date: 10/07/2018 Generated: 10/13/18 3:16 pm Comments DCP- Discharge Planning Updated by [email or web address]: Lucero Richard on 10/10/18 3:[address] Spoke with Katelin and she agrees with need for emergent surgery. I called OR and spoke through Chapo in Dr. Sahu's procedure that Katelin agrees with need for emergent surgery. I informed that policy is if the person legally authorized to give consent is incapable of consenting or cannot be contacted, the the treating physician shall document the nature of the emergency in the medical record and proceed with the surgery. CM will continue to follow. DCP- Discharge Planning Updated by [email or web address]: Lucero Ramos on 10/10/18 2:[address] Spoke with Dr. Sahu and informed that we have been unable to locate family. Dr. Frank's office also has no phone number for Lindsey (sister in law). Policy is for the physician to sign the consent. CM will continue to follow and assist with discharge planning/needs. DCP- Discharge Planning Updated by [email or web address]: Lucero Richard on 10/09/18 10:[address] I called Christine Randolph again, his private healthcare science specialist, to ask what company she works for. She works for [employer]. [employer] does not have any family contact listed. Christine states he has told me he has family contacts in [place], but he does not. I called Dr. Frank's office again and reached the answering machine again and informed them of the urgency of trying to find contact information and my call back number. CM will continue to follow and assist with discharge planning/needs. DCP- Discharge Planning Updated by [email or web address]: Lucero Ramos on 10/09/18 8:[address] Spoke with patient regarding family contact. He does have a sister in law (Lindsey López) but is unable to tell me her phone number. I called information for a phone number in [place] (patient states she lives there) and their is no listing. I called his healthcare science specialist, Christine Dickson at [phone] and she does not have a family contact and she is not his POA. I called Dr. Frank's office and have left a message to return call. CM will continue to follow and assist with discharge planning/needs. DCP- Discharge Planning Updated by [email or web address]: Alee Nuñez on 10/07/18 10:[address] CM met with patient regarding DC needs/planning. Patient states he lives at the [facility] on the 11th floor, uses elevator to go to his apartment. PCP: Dr. Frank. Pharmacy: [facility], w/delivery. HHS: No. Private animal caretaker: hCristine Dickson #[phone]. Patient requires assistance with bathing/dressing. DME: 2 canes, Walker. Voices no other needs @this time. CM will follow and assist with DC needs/plans PRN. Alee Nuñez RN CM DCPIA - Discharge Planning Initial Assessment Updated by [email or web address]: Alee Nuñez on 10/07/18 11:19 am * Is the patient Alert and Oriented? Yes * How many steps to enter\exit or inside your home? * PCP Dr. Frank * Pharmacy [facility], w/delivery * Preadmission Environment Home Alone * ADLs Partial Dependent * Partial ADLs (Assistance needed) Bathing Dressing * Equipment Cane * Other Equipment States he has 2 canes, O2 but does not use it * Community resources currently utilized Private Duty Care * Please name any agencies selected above. Patient could not remember the name of Agency. * Can the patient safely return to the preadmission environment? Yes * Has this patient been hospitalized within the prior 30 days at any hospital? No Last DP export: 10/10/18 4:06 Patient Name: FRANCISCO JAVIER LÓPEZ Page [phone] at 1417 All edits/amendments must be made on the electronic document DICTATION DATE: 10/13/181415 MAPPING ENGINEER: MANJIT 10/13/181415 RPT#: [id number] [place] DATE: STATUS: ADM IN [facility] [address] [place] [address] END OF REPORT
[2018-10-14] VITALS (23 sets, daily range): BP systolic 116–145; BP diastolic 58–108
[2018-10-14 04:46] LABS: BASOPHILS 0.2 % (0-2); EOSINOPHILS 5.7 % (0-7); HEMATOCRIT 33.1 % (42.0-54.0); HEMOGLOBIN 10.4 g/dL (13.5-17.5); LYMPHOCYTES 5.7 % (15-50); MCH 29.2 pg (26.0-34.0); MCHC 31.4 g/dL (31.0-37.0); MEAN PLATELET VOLUME 11.2 fL (7.4-10.4); MONOCYTES 8.2 % (2-11); NEUTROPHILS 79.2 % (40-80); PLATELET COUNT 437 10x3/uL (130-400); RBC 3.56 10x6/uL (4.20-6.10); RDW 15.1 % (11.5-14.5); WBC 17.7 10x3/uL (4.8-10.8)
[2018-10-14 04:51] LABS: ALBUMIN 1.4 g/dL (3.4-5.0); ANION GAP 8.9 mmol/L (8-16); BILIRUBIN - TOTAL 0.29 mg/dL (0.2-1.3); CALCIUM 7.9 mg/dL (8.5-10.1); CARBON DIOXIDE 28.9 mmol/L (21.0-32.0); CREATININE - SERUM 1.5 mg/dL (0.6-1.3); POTASSIUM - SERUM 4.8 mmol/L (3.5-5.1); PROTEIN - SERUM 5.3 g/dL (6.4-8.2)
--- NOTE | 2018-10-14 15:22 | OP ---
PATIENT NAME: FRANCISCO JAVIER LARES MEDICAL RECORD: [id number] :42 LOCATION:.[facility] D.2302 ADMISSION DATE:10/07/18 SURGEON: CAMILLE DENNY MD DATE OF OPERATION: 10/12/2018 PREOPERATIVE DIAGNOSES: 1. Pneumoperitoneum. 2. Perforated viscus. POSTOPERATIVE DIAGNOSES: 1. Pneumoperitoneum. 2. Large perforated anterior duodenal ulcer at the first portion of the duodenum. 3. Widespread peritonitis with contamination. 4. Large subphrenic abscess. PROCEDURES: 1. Diagnostic laparoscopy with conversion to exploratory laparotomy. 2. Russell patch procedure. 3. Abdominal lavage. SURGEON: Camille Denny MD FOREST FIRE FIGHTER: None. BLOOD LOSS: 100 cc. ANESTHESIA: General. DRAINS: Times 2 (19-Tajik fully fluted closed drainage systems). This gentleman has been sick for several days. 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 I have explained the procedure to him several times and he may have some concept of the procedure; however, I was a little concerned that he would be unable to provide an informed consent. The nursing staff and employment case manager have tried to get a hold of the family member or a close friend who could provide us with a consent. We were unable to find such a person. We called the senior living and there was no one listed as a key person for this patient. The patient is getting quite ill and I believe, he will without an operation. For that reason, we have elected to proceed with an operation. The hospitalist team agrees that we should go ahead with the operative procedure as it is in this patient's best interest and he likely will succumb to sepsis if he does not undergo an operation. The risks, possible complications, and alternatives to procedure were explained to the patient. He elects to proceed. OPERATIVE COURSE: The patient was conveyed to the operating room electively on 10/12/2018. General anesthesia was induced by the anesthesia staff. The abdomen was sterilely prepped and draped. A small skin holley was accomplished in the left upper quadrant. A Veress needle was inserted through the skin holley into the peritoneal cavity. CO2 insufflation was begun. Once a sufficient pneumoperitoneum had been achieved, a 5-mm trocar was inserted in the left upper quadrant. An abdominal survey was undertaken. Widespread contamination was identified. There was a lot of exudate over the diaphragms of the liver and on OPERATIVE REPORT [id number] FRANCISCO JAVIER LARES the bowel. I did not feel that laparoscopy would be able to contaminate the abdomen adequately. It is for this reason, I elected to convert to an exploratory laparotomy. The trocar was removed. An upper midline incision was accomplished. The peritoneal cavity was entered sharply. An Estrada retractor was placed. I then began to lavage the abdomen. I began removing the exudate. I ran the small bowel several times removing exudate material off the bowel. I removed exudate off the diaphragm as well as over the convexity of the liver. The falciform ligament was ligated and then divided between ligatures. I then took down the anterior portion of the triangular ligament of the liver. I examined the colon. I identified the anterior perforation and the duodenum. Utilizing Kerrison punches, I punched out some biopsies from the periphery of the ulcer. These were full thickness biopsies. Biopsy sites were made hemostatic with electrocautery. It is going to be impossible to close this defect due to induration and friability of the tissues. Therefore, a Russell patch procedure was indicated. I irrigated in all quadrants and aspirated. Further exudative material was removed. Utilizing the Super Jaw EnSeal, I began to create an omental tongue starting from the right and moving to the left. At no time was there any apparent colonic injury during this procedure. I then placed a 2-0 Vicryl suture and sutured the anterior portion of the stomach to the junction of the second and third portion of the duodenum. Under this 2-0 Vicryl, I placed this tongue of omentum and then tightened down with a 2-0 Vicryl, but not too tight to strangle this omental tongue of tissue, which appeared to be vascularized nicely. I irrigated in all quadrants and aspirated again. There was no bleeding. I ensured the small bowel was not twisted on its mesentery. A 19-Tajik fully fluted drain was brought out in the right side of the abdomen as well as through the trocar site in the left upper quadrant. One drain was placed over the convexity of the liver and under the diaphragm and the other was placed under the liver at about where the Russell patch had been placed. I reperitonealized with running #1 Vicryl. The drains were sutured to skin with 4-0 nylons. The fascia was closed with a running looped #1 PDS in a horizontal mattress fashion from the cephalad and caudad directions. The subdermis was approximated with interrupted 3-0 Vicryls. I then loosely closed the skin by widely spacing a few metallic clips. The patient was then extubated and conveyed to post-anesthesia care unit. He is in critical condition and will be admitted to the intensive care unit. TRANSINT:[id number] Voice Confirmation ID: [id number] DOCUMENT ID: [id number] CAMILLE DENNY MD at 1522 CC: PAIGE AGUIRRE [phone] DICTATION DATE: 10/12/181920 COMPUTER PERIPHERAL EQUIPMENT OPERATOR: 10/12/18 2312 ADM IN [facility] [address] [place] [address]
[2018-10-15] VITALS (25 sets, daily range): BP systolic 122–149; BP diastolic 54–91
[2018-10-15 04:20] LABS: BASOPHILS 0.1 % (0-2); EOSINOPHILS 4.6 % (0-7); HEMATOCRIT 32.1 % (42.0-54.0); HEMOGLOBIN 9.9 g/dL (13.5-17.5); IMMATURE GRANULOCYTES 0.4 % (0-5); LYMPHOCYTES 5.9 % (15-50); MCH 28.5 pg (26.0-34.0); MCHC 30.8 g/dL (31.0-37.0); MCV 92.5 fL (80.0-100.0); MEAN PLATELET VOLUME 10.7 fL (7.4-10.4); MONOCYTES 6.2 % (2-11); NEUTROPHILS 82.8 % (40-80); PLATELET COUNT 458 10x3/uL (130-400); RBC 3.47 10x6/uL (4.20-6.10); RDW 14.8 % (11.5-14.5); WBC 16.6 10x3/uL (4.8-10.8)
[2018-10-15 04:44] LABS: ALBUMIN 1.3 g/dL (3.4-5.0); ANION GAP 11.7 mmol/L (8-16); BILIRUBIN - TOTAL 0.38 mg/dL (0.2-1.3); CALCIUM 7.9 mg/dL (8.5-10.1); CARBON DIOXIDE 25.6 mmol/L (21.0-32.0); CREATININE - SERUM 1.3 mg/dL (0.6-1.3); POTASSIUM - SERUM 5.3 mmol/L (3.5-5.1); PROTEIN - SERUM 5.3 g/dL (6.4-8.2)
[2018-10-16] VITALS (23 sets, daily range): BP systolic 115–149; BP diastolic 53–98
[2018-10-16 04:34] LABS: BASOPHILS 0.1 % (0-2); EOSINOPHILS 4.6 % (0-7); HEMATOCRIT 29.8 % (42.0-54.0); HEMOGLOBIN 9.3 g/dL (13.5-17.5); IMMATURE GRANULOCYTES 0.4 % (0-5); LYMPHOCYTES 7.3 % (15-50); MCH 28.6 pg (26.0-34.0); MCHC 31.2 g/dL (31.0-37.0); MCV 91.7 fL (80.0-100.0); MEAN PLATELET VOLUME 10.4 fL (7.4-10.4); MONOCYTES 5.9 % (2-11); NEUTROPHILS 81.7 % (40-80); PLATELET COUNT 508 10x3/uL (130-400); RBC 3.25 10x6/uL (4.20-6.10); RDW 14.9 % (11.5-14.5); WBC 14.9 10x3/uL (4.8-10.8)
[2018-10-16 04:56] LABS: ALBUMIN 1.4 g/dL (3.4-5.0); ANION GAP 11.6 mmol/L (8-16); BILIRUBIN - TOTAL 0.39 mg/dL (0.2-1.3); CALCIUM 7.9 mg/dL (8.5-10.1); CARBON DIOXIDE 25.6 mmol/L (21.0-32.0); CREATININE - SERUM 1.2 mg/dL (0.6-1.3); POTASSIUM - SERUM 4.2 mmol/L (3.5-5.1); PROTEIN - SERUM 5.2 g/dL (6.4-8.2)
[2018-10-17] VITALS (22 sets, daily range): BP systolic 125–163; BP diastolic 59–88
[2018-10-17 03:31] LABS: BASOPHILS 0.2 % (0-2); EOSINOPHILS 2.7 % (0-7); HEMATOCRIT 29.2 % (42.0-54.0); HEMOGLOBIN 9.3 g/dL (13.5-17.5); IMMATURE GRANULOCYTES 0.3 % (0-5); LYMPHOCYTES 8.8 % (15-50); MCH 29.2 pg (26.0-34.0); MCHC 31.8 g/dL (31.0-37.0); MCV 91.8 fL (80.0-100.0); MEAN PLATELET VOLUME 10.7 fL (7.4-10.4); MONOCYTES 6.6 % (2-11); NEUTROPHILS 81.4 % (40-80); PLATELET COUNT 566 10x3/uL (130-400); RBC 3.18 10x6/uL (4.20-6.10); RDW 14.7 % (11.5-14.5); WBC 14.8 10x3/uL (4.8-10.8)
[2018-10-17 03:38] LABS: ALBUMIN 1.4 g/dL (3.4-5.0); ANION GAP 11.2 mmol/L (8-16); BILIRUBIN - TOTAL 0.42 mg/dL (0.2-1.3); CALCIUM 7.8 mg/dL (8.5-10.1); CARBON DIOXIDE 25.9 mmol/L (21.0-32.0); CREATININE - SERUM 1.2 mg/dL (0.6-1.3); POTASSIUM - SERUM 4.1 mmol/L (3.5-5.1); PROTEIN - SERUM 5.2 g/dL (6.4-8.2)
[2018-10-18] VITALS (40 sets, daily range): BP systolic 63–223; BP diastolic 32–130
[2018-10-18 03:31] LABS: BASOPHILS 0.3 % (0-2); EOSINOPHILS 2.5 % (0-7); HEMATOCRIT 29.1 % (42.0-54.0); HEMOGLOBIN 9.4 g/dL (13.5-17.5); IMMATURE GRANULOCYTES 0.3 % (0-5); MCH 29.2 pg (26.0-34.0); MCHC 32.3 g/dL (31.0-37.0); MCV 90.4 fL (80.0-100.0); MEAN PLATELET VOLUME 10.5 fL (7.4-10.4); MONOCYTES 9.9 % (2-11); PLATELET COUNT 644 10x3/uL (130-400); RBC 3.22 10x6/uL (4.20-6.10); RDW 14.7 % (11.5-14.5); WBC 14.6 10x3/uL (4.8-10.8)
[2018-10-18 03:48] LABS: ALBUMIN 1.6 g/dL (3.4-5.0); ANION GAP 13.2 mmol/L (8-16); BILIRUBIN - TOTAL 0.79 mg/dL (0.2-1.3); CARBON DIOXIDE 25.6 mmol/L (21.0-32.0); CREATININE - SERUM 1.3 mg/dL (0.6-1.3); POTASSIUM - SERUM 3.8 mmol/L (3.5-5.1); PROTEIN - SERUM 5.8 g/dL (6.4-8.2)
[2018-10-19] VITALS (24 sets, daily range): BP systolic 141–159; BP diastolic 67–107
[2018-10-19 15:28] LABS: ANION GAP 7.9 mmol/L (8-16); CALCIUM 7.5 mg/dL (8.5-10.1); CARBON DIOXIDE 29.6 mmol/L (21.0-32.0); CREATININE - SERUM 1.3 mg/dL (0.6-1.3); POTASSIUM - SERUM 3.5 mmol/L (3.5-5.1)
[2018-10-20] VITALS (21 sets, daily range): BP systolic 127–161; BP diastolic 62–136
[2018-10-20 05:01] LABS: BASOPHILS 0.3 % (0-2); EOSINOPHILS 4.4 % (0-7); HEMATOCRIT 28.6 % (42.0-54.0); IMMATURE GRANULOCYTES 0.5 % (0-5); LYMPHOCYTES 10.4 % (15-50); MCHC 31.5 g/dL (31.0-37.0); MCV 89.1 fL (80.0-100.0); MEAN PLATELET VOLUME 10.5 fL (7.4-10.4); MONOCYTES 9.8 % (2-11); NEUTROPHILS 74.6 % (40-80); PLATELET COUNT 682 10x3/uL (130-400); RBC 3.21 10x6/uL (4.20-6.10); RDW 14.4 % (11.5-14.5); WBC 12.6 10x3/uL (4.8-10.8)
[2018-10-20 05:18] LABS: ANION GAP 11.7 mmol/L (8-16); CALCIUM 7.4 mg/dL (8.5-10.1); CARBON DIOXIDE 27.4 mmol/L (21.0-32.0); CREATININE - SERUM 1.2 mg/dL (0.6-1.3); POTASSIUM - SERUM 3.1 mmol/L (3.5-5.1)
[2018-10-21] VITALS (21 sets, daily range): BP systolic 138–179; BP diastolic 72–107
[2018-10-21 05:53] LABS: BASOPHILS 0.3 % (0-2); EOSINOPHILS 4.6 % (0-7); HEMATOCRIT 27.6 % (42.0-54.0); IMMATURE GRANULOCYTES 0.3 % (0-5); LYMPHOCYTES 10.1 % (15-50); MCH 28.6 pg (26.0-34.0); MCHC 32.6 g/dL (31.0-37.0); MCV 87.6 fL (80.0-100.0); MEAN PLATELET VOLUME 10.4 fL (7.4-10.4); MONOCYTES 8.3 % (2-11); NEUTROPHILS 76.4 % (40-80); PLATELET COUNT 641 10x3/uL (130-400); RBC 3.15 10x6/uL (4.20-6.10); RDW 14.4 % (11.5-14.5)
[2018-10-21 06:22] LABS: ANION GAP 12.2 mmol/L (8-16); CALCIUM 7.3 mg/dL (8.5-10.1); CARBON DIOXIDE 27.1 mmol/L (21.0-32.0); CREATININE - SERUM 1.2 mg/dL (0.6-1.3); POTASSIUM - SERUM 3.3 mmol/L (3.5-5.1)
[2018-10-22] VITALS (20 sets, daily range): BP systolic 132–179; BP diastolic 68–118
[2018-10-22 06:15] LABS: BASOPHILS 0.6 % (0-2); EOSINOPHILS 5.4 % (0-7); HEMATOCRIT 28.8 % (42.0-54.0); HEMOGLOBIN 9.3 g/dL (13.5-17.5); IMMATURE GRANULOCYTES 0.4 % (0-5); MCH 28.4 pg (26.0-34.0); MCHC 32.3 g/dL (31.0-37.0); MCV 87.8 fL (80.0-100.0); MEAN PLATELET VOLUME 10.7 fL (7.4-10.4); NEUTROPHILS 74.6 % (40-80); PLATELET COUNT 642 10x3/uL (130-400); RBC 3.28 10x6/uL (4.20-6.10); RDW 14.1 % (11.5-14.5); WBC 10.4 10x3/uL (4.8-10.8)
[2018-10-22 06:42] LABS: CALC OSMOLALITY 273 mosm/kg (275-300); CALCIUM 7.6 mg/dL (8.5-10.1); CARBON DIOXIDE 27.1 mmol/L (21.0-32.0); CHLORIDE - SERUM 102 mmol/L (98-107); GLUCOSE 127 mg/dL (74-106); POTASSIUM - SERUM 3.6 mmol/L (3.5-5.1); SODIUM 136 mmol/L (136-145); UREA NITROGEN 12 mg/dL (7-18); eGFR NON AFRICAN AMERICAN 77 mL/min (90-120)
[2018-10-23 04:58] VITALS: BP 152/72
[2018-10-23 07:07] LABS: BASOPHILS 0.9 % (0-2); EOSINOPHILS 4.7 % (0-7); HEMATOCRIT 26.4 % (42.0-54.0); HEMOGLOBIN 8.6 g/dL (13.5-17.5); IMMATURE GRANULOCYTES 0.4 % (0-5); LYMPHOCYTES 10.7 % (15-50); MCH 28.2 pg (26.0-34.0); MCHC 32.6 g/dL (31.0-37.0); MCV 86.6 fL (80.0-100.0); MEAN PLATELET VOLUME 10.9 fL (7.4-10.4); MONOCYTES 9.1 % (2-11); NEUTROPHILS 74.2 % (40-80); PLATELET COUNT 587 10x3/uL (130-400); RBC 3.05 10x6/uL (4.20-6.10); RDW 14.2 % (11.5-14.5); WBC 9.4 10x3/uL (4.8-10.8)
[2018-10-23 07:15] LABS: ANION GAP 11.4 mmol/L (8-16); CALCIUM 7.4 mg/dL (8.5-10.1); CARBON DIOXIDE 27.8 mmol/L (21.0-32.0); CREATININE - SERUM 1.1 mg/dL (0.6-1.3); POTASSIUM - SERUM 4.2 mmol/L (3.5-5.1)
[2018-10-23 20:00] VITALS: BP 141/64
[2018-10-24] VITALS: BP 147/85
[2018-10-24 04:00] VITALS: BP 156/72
[2018-10-24 06:08] LABS: ALBUMIN 1.7 g/dL (3.4-5.0); ANION GAP 10.2 mmol/L (8-16); BILIRUBIN - TOTAL 0.56 mg/dL (0.2-1.3); CALCIUM 7.7 mg/dL (8.5-10.1); CARBON DIOXIDE 28.7 mmol/L (21.0-32.0); CREATININE - SERUM 1.2 mg/dL (0.6-1.3); POTASSIUM - SERUM 3.9 mmol/L (3.5-5.1); PROTEIN - SERUM 6.2 g/dL (6.4-8.2)
[2018-10-24 06:26] LABS: BASOPHILS 0.6 % (0-2); EOSINOPHILS 6.8 % (0-7); HEMOGLOBIN 9.1 g/dL (13.5-17.5); IMMATURE GRANULOCYTES 0.2 % (0-5); LYMPHOCYTES 13.3 % (15-50); MCH 28.3 pg (26.0-34.0); MCHC 32.5 g/dL (31.0-37.0); MCV 87.2 fL (80.0-100.0); MONOCYTES 8.2 % (2-11); NEUTROPHILS 70.9 % (40-80); PLATELET COUNT 584 10x3/uL (130-400); RBC 3.21 10x6/uL (4.20-6.10); RDW 14.3 % (11.5-14.5); WBC 9.8 10x3/uL (4.8-10.8)
[2018-10-24 09:20] VITALS: BP 147/66
[2018-10-24 14:41] VITALS: BP 156/71
[2018-10-24 16:12] VITALS: BP 142/69
[2018-10-24 20:00] VITALS: BP 152/75
[2018-10-25] VITALS: BP 130/78
[2018-10-25 04:00] VITALS: BP 150/77
[2018-10-25 07:12] LABS: BASOPHILS 1.1 % (0-2); EOSINOPHILS 5.8 % (0-7); HEMATOCRIT 28.2 % (42.0-54.0); HEMOGLOBIN 8.9 g/dL (13.5-17.5); IMMATURE GRANULOCYTES 0.2 % (0-5); LYMPHOCYTES 18.3 % (15-50); MCHC 31.6 g/dL (31.0-37.0); MCV 88.7 fL (80.0-100.0); MEAN PLATELET VOLUME 11.2 fL (7.4-10.4); MONOCYTES 10.1 % (2-11); NEUTROPHILS 64.5 % (40-80); PLATELET COUNT 576 10x3/uL (130-400); RBC 3.18 10x6/uL (4.20-6.10); RDW 14.6 % (11.5-14.5); WBC 8.8 10x3/uL (4.8-10.8)
[2018-10-25 07:24] LABS: ALBUMIN 1.7 g/dL (3.4-5.0); ANION GAP 10.5 mmol/L (8-16); BILIRUBIN - TOTAL 0.54 mg/dL (0.2-1.3); CALCIUM 7.8 mg/dL (8.5-10.1); CARBON DIOXIDE 28.5 mmol/L (21.0-32.0); CREATININE - SERUM 1.2 mg/dL (0.6-1.3); PROTEIN - SERUM 6.2 g/dL (6.4-8.2)
[2018-10-25 11:33] VITALS: BP 143/66
[2018-10-25 16:41] VITALS: BP 142/69
[2018-10-25 19:40] VITALS: BP 113/67
[2018-10-25 23:55] VITALS: BP 108/62
[2018-10-26 03:45] VITALS: BP 138/83
[2018-10-26 05:12] LABS: BASOPHILS 1.5 % (0-2); EOSINOPHILS 5.3 % (0-7); HEMATOCRIT 27.1 % (42.0-54.0); HEMOGLOBIN 8.8 g/dL (13.5-17.5); IMMATURE GRANULOCYTES 0.2 % (0-5); LYMPHOCYTES 16.3 % (15-50); MCH 28.6 pg (26.0-34.0); MCHC 32.5 g/dL (31.0-37.0); MEAN PLATELET VOLUME 10.8 fL (7.4-10.4); MONOCYTES 8.7 % (2-11); PLATELET COUNT 543 10x3/uL (130-400); RBC 3.08 10x6/uL (4.20-6.10); RDW 14.5 % (11.5-14.5); WBC 8.1 10x3/uL (4.8-10.8)
[2018-10-26 05:27] LABS: ALBUMIN 1.8 g/dL (3.4-5.0); ANION GAP 10.4 mmol/L (8-16); BILIRUBIN - TOTAL 0.48 mg/dL (0.2-1.3); CALCIUM 7.9 mg/dL (8.5-10.1); CARBON DIOXIDE 27.6 mmol/L (21.0-32.0); CREATININE - SERUM 1.2 mg/dL (0.6-1.3)
[2018-10-26 08:13] VITALS: BP 132/92
[2018-10-26 12:00] VITALS: BP 146/68
[2018-10-26 16:00] VITALS: BP 160/70
[2018-10-26 20:00] VITALS: BP 113/75
[2018-10-27] VITALS: BP 122/70
[2018-10-27 04:00] VITALS: BP 118/71
[2018-10-27 07:05] LABS: BASOPHILS 1.4 % (0-2); EOSINOPHILS 7.4 % (0-7); HEMATOCRIT 28.2 % (42.0-54.0); HEMOGLOBIN 9.1 g/dL (13.5-17.5); IMMATURE GRANULOCYTES 0.3 % (0-5); LYMPHOCYTES 15.6 % (15-50); MCH 28.3 pg (26.0-34.0); MCHC 32.3 g/dL (31.0-37.0); MCV 87.6 fL (80.0-100.0); MEAN PLATELET VOLUME 11.2 fL (7.4-10.4); MONOCYTES 11.6 % (2-11); NEUTROPHILS 63.7 % (40-80); PLATELET COUNT 533 10x3/uL (130-400); RBC 3.22 10x6/uL (4.20-6.10); RDW 14.2 % (11.5-14.5); WBC 7.1 10x3/uL (4.8-10.8)
[2018-10-27 07:19] LABS: ALBUMIN 1.9 g/dL (3.4-5.0); ANION GAP 8.7 mmol/L (8-16); BILIRUBIN - TOTAL 0.47 mg/dL (0.2-1.3); CALCIUM 8.3 mg/dL (8.5-10.1); CARBON DIOXIDE 29.6 mmol/L (21.0-32.0); CREATININE - SERUM 1.2 mg/dL (0.6-1.3); POTASSIUM - SERUM 4.3 mmol/L (3.5-5.1); PROTEIN - SERUM 6.6 g/dL (6.4-8.2)
[2018-10-27 07:39] LABS: PLATELET ESTIMATE INCREASED
--- NOTE | 2018-10-27 13:59 | MORECARE ---
CASE MANAGEMENT DISCHARGE SUMMARY PATIENT: FRANCISCO JAVIER LÓPEZ UNIT: [id number] ADM DATE: 10/07/18 AGE: 78 : 41 SEX: M ROOM/BED: D.1212 AUTHOR: JUAN,DOC PHYSICIAN: REFERRING PHYSICIAN: PAIGE AGUIRRE MD DATE OF SERVICE: 10/27/18 Discharge Plan Patient Name: FRANCISCO JAVIER LÓPEZ Facility: [facility]:[place] : 1940 Planned Disposition: Anticipated Discharge Date: Discharge Date: Expected LOS: Initial Reviewer: [email or web address] Initial Review Date: 10/07/2018 Generated: 10/27/18 2:59 pm Comments DCP- Discharge Planning Updated by [email or web address]: Catherine Sterling on 10/27/18 12:[address] CM informed by Radha Rodriguez that patient does not want to give up his check for longterm placement. CM, Radha Rodriguez, and David Black with [facility] all met with patient about his discharge plans. Patient confirms that he does not want to give up his check to live in the longterm. States he wants to discharge to home. States he doesn't want Hospice at this time, but will call Luke if he changes his mind after he goes home. CM will continue to follow and assist as needed with discharge planning / needs. DCP- Discharge Planning Updated by [id number]: Lucero Ramos on 10/10/18 3:[address] Spoke with Katelin and she agrees with need for emergent surgery. I called OR and spoke through Chapo in Dr. Sahu's procedure that Katelin agrees with need for emergent surgery. I informed that policy is if the person legally authorized to give consent is incapable of consenting or cannot be contacted, the the treating physician shall document the nature of the emergency in the medical record and proceed with the surgery. CM will continue to follow. DCP- Discharge Planning Updated by [email or web address]: Lucero Ramos on 10/10/18 2:[address] Dr. Sahu and informed that we have been unable to locate family. Dr. Frank's office also has no phone number for Lindsey (sister in law). Policy is for the physician to sign the consent. CM will continue to follow and assist with discharge planning/needs. DCP- Discharge Planning Updated by [id number]: Lucero Ramos on 10/09/18 10:[address] I called Christine Dickson again, his private customer care associate, to ask what company she works for. She works for [employer]. [employer] does not have any family contact listed. Christine states he has told me he has family contacts in his billfold, but he does not. I called Dr. Frank's office again and reached the answering machine again and informed them of the urgency of trying to find contact information and my call back number. CM will continue to follow and assist with discharge planning/needs. DCP- Discharge Planning Updated by [id number]: Lucero Ramos on 10/09/18 8:[address] Spoke with patient regarding family contact. He does have a sister in law (Lindsey López) but is unable to tell me her phone number. I called information for a phone number in [place] (patient states she lives there) and their is no listing. I called his customer care associate, Christine Dickson at [phone] and she does not have a family contact and she is not his POA. I called Dr. Frank's office and have left a message to return call. CM will continue to follow and assist with discharge planning/needs. DCP- Discharge Planning Updated by [id number]: Alee Nuñez on 10/07/18 10:[address] CM met with patient regarding DC needs/planning. Patient states he lives at the [facility] on the 11th floor, uses elevator to go to his apartment. PCP: Dr. Frank. Pharmacy: [facility], w/delivery. HHS: No. Private customer care associate: Christine Dickson #[phone]. Patient requires assistance with bathing/dressing. DME: 2 canes, Walker. Voices no other needs @this time. CM will follow and assist with DC needs/plans PRN. Alee Nuñez RN CM DCPIA - Discharge Planning Initial Assessment Updated by [id number]: Alee Nuñez on 10/07/18 11:19 am * Is the patient Alert and Oriented? Yes * How many steps to enter\exit or inside your home? * PCP Dr. Frank * Pharmacy [facility], w/delivery * Preadmission Environment Home Alone * ADLs Partial Dependent * Partial ADLs (Assistance needed) Bathing Dressing * Equipment Cane * Other Equipment States he has 2 canes, O2 but does not use it * Community resources currently utilized Private Duty Care * Please name any agencies selected above. Patient could not remember the name of Agency. * Can the patient safely return to the preadmission environment? Yes * Has this patient been hospitalized within the prior 30 days at any hospital? No Last DP export: 10/13/18 1:16 Patient Name: FRANCISCO JAVIER LÓPEZ Page [id number] at 1359 All edits/amendments must be made on the electronic document DICTATION DATE: 10/27/18 1355 DISTRIBUTOR OF DIRECTORIES: MANJIT 10/27/18 1359 RPT#: [id number] DC DATE: STATUS: ADM IN [facility] [address] [place] [address] END OF REPORT
[2018-10-27 16:06] VITALS: BP 122/52
[2018-10-27 16:20] VITALS: BP 140/64
[2018-10-27 20:00] VITALS: BP 131/61
[2018-10-28] VITALS: BP 131/51
[2018-10-28 04:00] VITALS: BP 119/58
[2018-10-28 07:11] LABS: BASOPHILS 1.3 % (0-2); EOSINOPHILS 5.7 % (0-7); HEMOGLOBIN 9.1 g/dL (13.5-17.5); IMMATURE GRANULOCYTES 0.1 % (0-5); LYMPHOCYTES 19.4 % (15-50); MCH 28.6 pg (26.0-34.0); MCHC 32.5 g/dL (31.0-37.0); MCV 88.1 fL (80.0-100.0); MEAN PLATELET VOLUME 11.1 fL (7.4-10.4); MONOCYTES 9.2 % (2-11); NEUTROPHILS 64.3 % (40-80); PLATELET COUNT 533 10x3/uL (130-400); RBC 3.18 10x6/uL (4.20-6.10); RDW 14.6 % (11.5-14.5); WBC 7.2 10x3/uL (4.8-10.8)
[2018-10-28 07:30] LABS: ALBUMIN 1.9 g/dL (3.4-5.0); ANION GAP 12.2 mmol/L (8-16); BILIRUBIN - TOTAL 0.39 mg/dL (0.2-1.3); CALCIUM 8.1 mg/dL (8.5-10.1); CARBON DIOXIDE 28.2 mmol/L (21.0-32.0); CREATININE - SERUM 1.2 mg/dL (0.6-1.3); POTASSIUM - SERUM 4.4 mmol/L (3.5-5.1); PROTEIN - SERUM 6.4 g/dL (6.4-8.2)
[2018-10-28 08:28] VITALS: BP 136/52
[2018-10-28 14:30] VITALS: BP 146/83
[2018-10-28 16:03] VITALS: BP 122/68
[2018-10-28 20:00] VITALS: BP 145/77
[2018-10-29] VITALS: BP 140/65
[2018-10-29 04:00] VITALS: BP 124/55
[2018-10-29 06:01] LABS: BASOPHILS 0.3 % (0-2); EOSINOPHILS 0.8 % (0-7); HEMATOCRIT 28.2 % (42.0-54.0); HEMOGLOBIN 9.1 g/dL (13.5-17.5); IMMATURE GRANULOCYTES 0.2 % (0-5); LYMPHOCYTES 10.2 % (15-50); MCH 28.3 pg (26.0-34.0); MCHC 32.3 g/dL (31.0-37.0); MCV 87.9 fL (80.0-100.0); MEAN PLATELET VOLUME 11.1 fL (7.4-10.4); MONOCYTES 4.4 % (2-11); NEUTROPHILS 84.1 % (40-80); PLATELET COUNT 516 10x3/uL (130-400); RBC 3.21 10x6/uL (4.20-6.10); RDW 14.7 % (11.5-14.5)
[2018-10-29 07:45] VITALS: BP 117/48
[2018-10-29 11:28] VITALS: BP 121/57
[2018-10-29 15:27] VITALS: BP 114/45
[2018-10-29 19:00] VITALS: BP 107/62
[2018-10-30] VITALS: BP 112/65
[2018-10-30 05:13] VITALS: BP 114/65
[2018-10-30 07:47] VITALS: BP 117/62
[2018-10-30 09:38] LABS: ANION GAP 9.2 mmol/L (8-16); BASOPHILS 1.1 % (0-2); CALCIUM 8.1 mg/dL (8.5-10.1); CARBON DIOXIDE 30.2 mmol/L (21.0-32.0); CREATININE - SERUM 1.4 mg/dL (0.6-1.3); EOSINOPHILS 8.1 % (0-7); HEMATOCRIT 27.6 % (42.0-54.0); HEMOGLOBIN 8.8 g/dL (13.5-17.5); IMMATURE GRANULOCYTES 0.1 % (0-5); LYMPHOCYTES 18.6 % (15-50); MCH 28.4 pg (26.0-34.0); MCHC 31.9 g/dL (31.0-37.0); MEAN PLATELET VOLUME 10.8 fL (7.4-10.4); MONOCYTES 8.6 % (2-11); NEUTROPHILS 63.5 % (40-80); PLATELET COUNT 472 10x3/uL (130-400); POTASSIUM - SERUM 4.4 mmol/L (3.5-5.1); RDW 14.8 % (11.5-14.5)
[2018-10-30 09:50] LABS: WBC 7.4 10x3/uL (4.8-10.8)
[2018-10-30 11:16] VITALS: BP 115/61
[2018-10-30 15:28] VITALS: BP 112/56
[2018-10-30 20:32] VITALS: BP 122/60
[2018-10-31 05:26] VITALS: BP 120/61
[2018-10-31 09:09] VITALS: BP 122/70
[2018-10-31 14:21] VITALS: BP 126/68
--- NOTE | 2018-10-31 14:23 | MORECARE ---
CASE MANAGEMENT DISCHARGE SUMMARY PATIENT: MAXX LÓPEZ UNIT: [id number] ADM DATE: 10/07/18 AGE: 78 : 41 SEX: M ROOM/BED: D.1212 AUTHOR: JUAN,DOC PHYSICIAN: REFERRING PHYSICIAN: PAIGE AGUIRRE MD DATE OF SERVICE: 10/31/18 Discharge Plan Patient Name: MAXX LÓPEZ Facility: [facility]:[place] : 1940 Planned Disposition: Anticipated Discharge Date: Discharge Date: Expected LOS: Initial Reviewer: [email or web address] Initial Review Date: 10/07/2018 Generated: 10/31/18 3:23 pm Comments DCP- Discharge Planning Updated by [id number]: Catherine Sterling on 10/31/18 1:[address] After numerous attempts, CM was finally able to locate family of patient. Patient's Nephew, Maxx López (Gene) cell: [phone], home: [phone]. Patient's Niece, Bijal Dueñas cell: [phone]. Jones and Bijal have instructed CM to send referral for SNF to [facility]. Bijal has already spoken with Faby at [facility] and has CM to fax patient's face sheet so facility can verify insurance benefits. Then Faby will call CM back for remaining referral info. DCP- Discharge Planning Updated by [id number]: Lucero Ramos on 10/10/18 3:[address] Spoke with Katelin and she agrees with need for emergent surgery. I called OR and spoke through Chapo in Dr. Sahu's procedure that Katelin agrees with need for emergent surgery. I informed that policy is if the person legally authorized to give consent is incapable of consenting or cannot be contacted, the the treating physician shall document the nature of the emergency in the medical record and proceed with the surgery. CM will continue to follow. DCP- Discharge Planning Updated by [id number]: Lucero Ramos on 10/10/18 2:[address] with Dr. Sahu and informed that we have been unable to locate family. Dr. Frank's office also has no phone number for Lindsey (sister in law). Policy is for the physician to sign the consent. CM will continue to follow and assist with discharge planning/needs. DCP- Discharge Planning Updated by [id number]: Lucero Ramos on 10/09/18 10:[address] I called Christine Dickson again, his private urgent care physician, to ask what company she works for. She works for [employer]. [employer] does not have any family contact listed. Christine states he has told me he has family contacts in his [place], but he does not. I called Dr. Frank's office again and reached the answering machine again and informed them of the urgency of trying to find contact information and my call back number. CM will continue to follow and assist with discharge planning/needs. DCP- Discharge Planning Updated by [id number]: Lucero Ramos on 10/09/18 8:[address] Spoke with patient regarding family contact. He does have a sister in law (Lindsey López) but is unable to tell me her phone number. I called information for a phone number in [place] (patient states she lives there) and their is no listing. I called his urgent care physician, Christine Dickson at [phone] and she does not have a family contact and she is not his POA. I called Dr. Frank's office and have left a message to return call. CM will continue to follow and assist with discharge planning/needs. DCP- Discharge Planning Updated by [id number]: Alee Nuñez on 10/07/18 10:[address] CM met with patient regarding DC needs/planning. Patient states he lives at the [facility] on the 11th floor, uses elevator to go to his apartment. PCP: Dr. Frank. Pharmacy: [facility], w/delivery. HHS: No. Private home care scheduler: Christine Dickson #[phone]. Patient requires assistance with bathing/dressing. DME: 2 canes, Walker. Voices no other needs @this time. CM will follow and assist with DC needs/plans PRN. Alee Nuñez RN, CM DCPIA - Discharge Planning Initial Assessment Updated by [id number]: Alee Nuñez on 10/07/18 11:19 am * Is the patient Alert and Oriented? Yes * How many steps to enter\exit or inside your home? * PCP Dr. Frank * Pharmacy [facility], w/delivery * Preadmission Environment Home Alone * ADLs Partial Dependent * Partial ADLs (Assistance needed) Bathing Dressing * Equipment Cane * Other Equipment States he has 2 canes, O2 but does not use it * Community resources currently utilized Private Duty Care * Please name any agencies selected above. Patient could not remember the name of Agency. * Can the patient safely return to the preadmission environment? Yes * Has this patient been hospitalized within the prior 30 days at any hospital? No External Providers External Provider: [facility] Next Contact Date: Service Request Date: Service Type: Resolution: Reviewer: Comments: Last DP export: 10/27/18 12:59 Patient Name: MAXX LÓPEZ Page 25517 at 1423 All edits/amendments must be made on the electronic document DICTATION DATE: 10/31/181422 PATENT LAW SPECIALIST: MANJIT 10/31/18 142 RPT#: [id number] [place] DATE: STATUS: ADM IN [facility] [address] [place] [address] END OF REPORT
--- NOTE | 2018-10-31 15:02 | MORECARE ---
CASE MANAGEMENT DISCHARGE SUMMARY PATIENT: MAXX LÓPEZ UNIT: [id number] ADM DATE: 10/07/18 AGE: 78 : 41 SEX: M ROOM/BED: D.1212 AUTHOR: JUAN,DOC PHYSICIAN: REFERRING PHYSICIAN: PAIGE AGUIRRE MD DATE OF SERVICE: 10/31/18 Discharge Plan Patient Name: MAXX LÓPEZ Facility: [facility]:[place] : 1940 Planned Disposition: Anticipated Discharge Date: Discharge Date: Expected LOS: Initial Reviewer: [id number] Initial Review Date: 10/07/2018 Generated: 10/31/18 4:02 pm Comments DCP- Discharge Planning Updated by [id number]: Catherine Sterling on 10/31/18 1:[address] After numerous attempts, CM was finally able to locate family of patient. Patient's Nephew, Maxx López (Gene) cell: [phone], home: [phone]. Patient's Niece, Bijal Dueñas cell: [phone]. Jones and Bijal have instructed CM to send referral for SNF to [facility]. Bijal has already spoken with Faby at [facility] and has CM to fax patient's face sheet so facility can verify insurance benefits. Then Faby will call CM back for remaining referral info. DCP- Discharge Planning Updated by [email or web address]: Lucero Ramos on 10/10/18 3:[address] Spoke with Katelin and she agrees with need for emergent surgery. I called OR and spoke through Chapo in Dr. Sahu's procedure that Katelin agrees with need for emergent surgery. I informed that policy is if the person legally authorized to give consent is incapable of consenting or cannot be contacted, the the treating physician shall document the nature of the emergency in the medical record and proceed with the surgery. CM will continue to follow. DCP- Discharge Planning Updated by [email or web address]: Lucero Ramos on 10/10/18 2:[address] Spoke with Dr. Sahu and informed that we have been unable to locate family. Dr. Frank's office also has no phone number for Lindsey (sister in law). Policy is for the physician to sign the consent. CM will continue to follow and assist with discharge planning/needs. DCP- Discharge Planning Updated by [id number]: Lucero Ramos on 10/09/18 10:[address] I called Christine Dickson again, his private field care manager, to ask what company she works for. She works for [employer]. [employer] does not have any family contact listed. Christine states he has told me he has family contacts in his [place], but he does not. I called Dr. Frank's office again and reached the answering machine again and informed them of the urgency of trying to find contact information and my call back number. CM will continue to follow and assist with discharge planning/needs. DCP- Discharge Planning Updated by [id number]: Lucero Ramos on 10/09/18 8:[address] Spoke with patient regarding family contact. He does have a sister in law (Lindsey López) but is unable to tell me her phone number. I called information for a phone number in [place] (patient states she lives there) and their is no listing. I called his field care manager, Christine Dickson at [phone] and she does not have a family contact and she is not his POA. I called Dr. Frank's office and have left a message to return call. CM will continue to follow and assist with discharge planning/needs. DCP- Discharge Planning Updated by [email or web address]: Alee Nuñez on 10/07/18 10:[address] CM met with patient regarding DC needs/planning. Patient states he lives at the [facility] on the 11th floor, uses elevator to go to his apartment. PCP: Dr. Frank. Pharmacy: [facility], w/delivery. HHS: No. Private healthcare management: Christine Dickson #[phone]. Patient requires assistance with bathing/dressing. DME: 2 canes, Walker. Voices no other needs @this time. CM will follow and assist with DC needs/plans PRN. Alee Nuñez RN, CM DCPIA - Discharge Planning Initial Assessment Updated by [email or web address]: Alee Nuñez on 10/07/18 11:19 am * Is the patient Alert and Oriented? Yes * How many steps to enter\exit or inside your home? * PCP Dr. Frank * Pharmacy [facility], w/delivery * Preadmission Environment Home Alone * ADLs Partial Dependent * Partial ADLs (Assistance needed) Bathing Dressing * Equipment Cane * Other Equipment States he has 2 canes, O2 but does not use it * Community resources currently utilized Private Duty Care * Please name any agencies selected above. Patient could not remember the name of Agency. * Can the patient safely return to the preadmission environment? Yes * Has this patient been hospitalized within the prior 30 days at any hospital? No Last DP export: 10/31/18 1:23 pm Patient Name: MAXX LÓPEZ Page [id number] at 1502 All edits/amendments must be made on the electronic document DICTATION DATE: 10/31/181501 AREA REPRESENTATIVE: MANJIT 10/31/181501 RPT#: [id number] DC DATE: STATUS: ADM IN [facility] [address] [place] [address] END OF REPORT
[2018-10-31 16:45] VITALS: BP 106/65
--- NOTE | 2018-10-31 17:28 | MORECARE ---
CASE MANAGEMENT DISCHARGE SUMMARY PATIENT: MAXX LÓPEZ UNIT: [id number] ADM DATE: 10/07/18 AGE: 78 : 41 SEX: M ROOM/BED: D.1212 AUTHOR: JUAN,DOC PHYSICIAN: REFERRING PHYSICIAN: PAIGE AGUIRRE MD DATE OF SERVICE: 10/31/18 Discharge Plan Patient Name: MAXX LÓPEZ Facility: [facility]:[place] : 1940 Planned Disposition: Anticipated Discharge Date: Discharge Date: Expected LOS: Initial Reviewer: [email or web address] Initial Review Date: 10/07/2018 Generated: 10/31/18 6:28 pm Comments DCP- Discharge Planning Updated by [email or web address]: Catherine Sterling on 10/31/18 4:[address] Late entry for 16:00. CM received call back from [facility]. Facility is in network with patient's insurance. CM faxed records as requested. Auth pending. DCP- Discharge Planning Updated by [email or web address]: Catherine Sterling on 10/31/18 1:[address] After numerous attempts, CM was finally able to locate family of patient. Patient's Nephew, Maxx "Jones" Maribel cell: [phone], home: [phone]. Patient's Niece, Bijal Dueñas cell: [phone]. Jones and Bijal have instructed CM to send referral for SNF to [facility]. Bijal has already spoken with Faby at [facility] and has CM to fax patient's face sheet so facility can verify insurance benefits. Then Faby will call CM back for remaining referral info. DCP- Discharge Planning Updated by [email or web address]: Lucero Ramos on 10/10/18 3:[address] Spoke with Katelin and she agrees with need for emergent surgery. I called OR and spoke through Chapo in Dr. Sahu's procedure that Katelin agrees with need for emergent surgery. I informed that policy is if the person legally authorized to give consent is incapable of consenting or cannot be contacted, the the treating physician shall document the nature of the emergency in the medical record and proceed with the surgery. CM will continue to follow. DCP- Discharge Planning Updated by [id number]: Lucero Ramos on 10/10/18 2:[address] Sp[address] with Dr. Sahu and informed that we have been unable to locate family. Dr. Frank's office also has no phone number for Lindsey (sister in law). Policy is for the physician to sign the consent. CM will continue to follow and assist with discharge planning/needs. DCP- Discharge Planning Updated by [id number]: Lucero Newmanestela on 10/09/18 10:[address] I called Christine Dickson again, his private medicare nurse, to ask what company she works for. She works for [employer]. [employer] does not have any family contact listed. Christine states he has told me he has family contacts in his billfold, but he does not. I called Dr. Frank's office again and reached the answering machine again and informed them of the urgency of trying to find contact information and my call back number. CM will continue to follow and assist with discharge planning/needs. DCP- Discharge Planning Updated by [id number]: Lucero Newmanestela on 10/09/18 8:[address] Spoke with patient regarding family contact. He does have a sister in law (Lindsey López) but is unable to tell me her phone number. I called information for a phone number in [place] (patient states she lives there) and their is no listing. I called his medicare nurse, Christine Dickson at [phone] and she does not have a family contact and she is not his POA. I called Dr. Frank's office and have left a message to return call. CM will continue to follow and assist with discharge planning/needs. DCP- Discharge Planning Updated by [id number]: Alee Nuñez on 10/07/18 10:[address] CM met with patient regarding DC needs/planning. Patient states he lives at the [facility] on the 11th floor, uses elevator to go to his apartment. PCP: Dr. Frank. Pharmacy: [facility], w/delivery. HHS: No. Private nursing care attendant: Christine Dickson #[phone]. Patient requires assistance with bathing/dressing. DME: 2 canes, Walker. Voices no other needs @this time. CM will follow and assist with DC needs/plans PRN. Alee Nuñez RN CM DCPIA - Discharge Planning Initial Assessment Updated by [email or web address]: Alee Nuñez on 10/07/18 11:19 am * Is the patient Alert and Oriented? Yes * How many steps to enter\\exit or inside your home? * PCP Dr. Frank * Pharmacy [facility], w/delivery * Preadmission Environment Home Alone * ADLs Partial Dependent * Partial ADLs (Assistance needed) Bathing Dressing * Equipment Cane * Other Equipment States he has 2 canes, O2 but does not use it * Community resources currently utilized Private Duty Care * Please name any agencies selected above. Patient could not remember the name of Agency. * Can the patient safely return to the preadmission environment? Yes * Has this patient been hospitalized within the prior 30 days at any hospital? No Last DP export: 10/31/18 2:02 pm Patient Name: MAXX LÓPEZ Page [id number] at 1728 All edits/amendments must be made on the electronic document DICTATION DATE: 10/31/181726 RACK PUNCHER: MANJIT 10/31/181726 RPT#: [id number] DC DATE: STATUS: ADM IN [facility] [address] [place] [address] END OF REPORT
[2018-11-01 05:37] VITALS: BP 112/74
[2018-11-01 07:32] LABS: BASOPHILS 0.8 % (0-2); EOSINOPHILS 5.8 % (0-7); HEMATOCRIT 28.5 % (42.0-54.0); IMMATURE GRANULOCYTES 0.3 % (0-5); MCH 28.5 pg (26.0-34.0); MCHC 31.6 g/dL (31.0-37.0); MCV 90.2 fL (80.0-100.0); MEAN PLATELET VOLUME 10.8 fL (7.4-10.4); NEUTROPHILS 64.1 % (40-80); PLATELET COUNT 427 10x3/uL (130-400); RBC 3.16 10x6/uL (4.20-6.10); RDW 14.9 % (11.5-14.5); WBC 7.6 10x3/uL (4.8-10.8)
[2018-11-01 07:51] LABS: CALCIUM 8.2 mg/dL (8.5-10.1); CREATININE - SERUM 1.4 mg/dL (0.6-1.3)
[2018-11-01 08:05] VITALS: BP 130/73
[2018-11-01 11:32] VITALS: BP 108/49
--- NOTE | 2018-11-01 12:16 | MORECARE ---
CASE MANAGEMENT DISCHARGE SUMMARY PATIENT: FRANCISCO JAVIER LÓPEZ UNIT: [id number] ADM DATE: 10/07/18 AGE: 78 : 41 SEX: M ROOM/BED: D.1212 AUTHOR: JUAN,DOC PHYSICIAN: REFERRING PHYSICIAN: PAIGE AGUIRRE MD DATE OF SERVICE: 11/01/18 Discharge Plan Patient Name: FRANCISCO JAVIER LÓPEZ Facility: [facility]:[place] : 1940 Planned Disposition: Anticipated Discharge Date: Discharge Date: Expected LOS: Initial Reviewer: [email or web address] Initial Review Date: 10/07/2018 Generated: 11/01/18 1:16 pm Comments DCP- Discharge Planning Updated by [id number]: Yane Cason on 11/01/18 11:[address] Late Entry 1015 Patient's nephew and sister in law at the bedside this am. They requested an update from embedded case manager.CM reviewed CM notes. Introduced myself to the family members. Provided updated information. Explained we are presently awaiting insurance authorization. Advised that all clinical information has been forwarded to [facility] as per their request. Contact information provided. DCP- Discharge Planning Updated by [id number]: Catherine Sterling on 10/31/18 4:[address] Late entry for 16:00. CM received call back from [facility]. Facility is in network with patient's insurance. CM faxed records as requested. Auth pending. DCP- Discharge Planning Updated by [id number]: Catherine Sterling on 10/31/18 1:[address] After numerous attempts, CM was finally able to locate family of patient. Patient's NephewFrancisco Javier "Jones" Maribel cell: [phone], home: [phone]. Patient's Niece, Bijal Dueñas cell: [phone]. Jones and Bijal have instructed CM to send referral for SNF to [facility]. Bijal has already spoken with Faby at [facility] and has CM to fax patient's face sheet so facility can verify insurance benefits. Then Faby will call CM back for remaining referral info. DCP- Discharge Planning Updated by [id number]: Lucero Ramos on 10/10/18 3:[address] Spoke with Katelin and she agrees with need for emergent surgery. I called OR and spoke through Chapo in Dr. Sahu's procedure that Katelin agrees with need for emergent surgery. I informed that policy is if the person legally authorized to give consent is incapable of consenting or cannot be contacted, the the treating physician shall document the nature of the emergency in the medical record and proceed with the surgery. CM will continue to follow. DCP- Discharge Planning Updated by [email or web address]: Lucero Richard on 10/10/18 2:[address] Spoke with Dr. Sahu and informed that we have been unable to locate family. Dr. Frank's office also has no phone number for Lindsey (sister in law). Policy is for the physician to sign the consent. CM will continue to follow and assist with discharge planning/needs. DCP- Discharge Planning Updated by [email or web address]: Lucero Newmanestela on 10/09/18 10:[address] I called Christine Dickson again, his private career services manager, to ask what company she works for. She works for [employer]. [employer] does not have any family contact listed. Christine states he has told me he has family contacts in his billfold, but he does not. I called Dr. Frank's office again and reached the answering machine again and informed them of the urgency of trying to find contact information and my call back number. CM will continue to follow and assist with discharge planning/needs. DCP- Discharge Planning Updated by [id number]: Lucero Ramos on 10/09/18 8:[address] Spoke with patient regarding family contact. He does have a sister in law (Lindsey López) but is unable to tell me her phone number. I called information for a phone number in [place] (patient states she lives there) and their is no listing. I called his career services manager, Christine Dickson at [phone] and she does not have a family contact and she is not his POA. I called Dr. Frank's office and have left a message to return call. CM will continue to follow and assist with discharge planning/needs. DCP- Discharge Planning Updated by [id number]: Alee Nuñez on 10/07/18 10:[address] CM met with patient regarding DC needs/planning. Patient states he lives at the [facility] on the 11th floor, uses elevator to go to his apartment. PCP: Dr. Frank. Pharmacy: [facility], w/delivery. HHS: No. Private customer care team coach: Christine Dickson #[phone]. Patient requires assistance with bathing/dressing. DME: 2 canes, Walker. Voices no other needs @this time. CM will follow and assist with DC needs/plans PRN. Alee Nuñez RN CM DCPIA - Discharge Planning Initial Assessment Updated by [email or web address]: Alee Nuñez on 10/07/18 11:19 am * Is the patient Alert and Oriented? Yes * How many steps to enter\\exit or inside your home? * PCP Dr. Frank * Pharmacy [facility], w/delivery * Preadmission Environment Home Alone * ADLs Partial Dependent * Partial ADLs (Assistance needed) Bathing Dressing * Equipment Cane * Other Equipment States he has 2 canes, O2 but does not use it * Community resources currently utilized Private Duty Care * Please name any agencies selected above. Patient could not remember the name of Agency. * Can the patient safely return to the preadmission environment? Yes * Has this patient been hospitalized within the prior 30 days at any hospital? No Last DP export: 10/31/18 4:28 pm Patient Name: FRANCISCO JAVIER LÓPEZ Page [id number] at 1216 All edits/amendments must be made on the electronic document DICTATION DATE: 11/01/186 INTERRELATED SPECIAL EDUCATION TEACHER: MANJIT 11/01/18 1216 RPT#: [id number] DC DATE: STATUS: ADM IN [facility] [address] [place] [address] END OF REPORT
[2018-11-01 15:43] VITALS: BP 142/63
[2018-11-02 00:30] VITALS: BP 129/85
[2018-11-02 08:25] LABS: BASOPHILS 0.7 % (0-2); EOSINOPHILS 6.4 % (0-7); HEMATOCRIT 25.1 % (42.0-54.0); HEMOGLOBIN 7.9 g/dL (13.5-17.5); IMMATURE GRANULOCYTES 0.2 % (0-5); LYMPHOCYTES 20.5 % (15-50); MCH 28.2 pg (26.0-34.0); MCHC 31.5 g/dL (31.0-37.0); MCV 89.6 fL (80.0-100.0); MEAN PLATELET VOLUME 10.9 fL (7.4-10.4); MONOCYTES 8.7 % (2-11); NEUTROPHILS 63.5 % (40-80); PLATELET COUNT 445 10x3/uL (130-400); RDW 14.7 % (11.5-14.5); WBC 8.6 10x3/uL (4.8-10.8)
[2018-11-02 08:39] LABS: ANION GAP 11.5 mmol/L (8-16); CALCIUM 8.2 mg/dL (8.5-10.1); CARBON DIOXIDE 27.8 mmol/L (21.0-32.0); CREATININE - SERUM 1.3 mg/dL (0.6-1.3); POTASSIUM - SERUM 4.3 mmol/L (3.5-5.1)
[2018-11-02 08:57] VITALS: BP 130/61
[2018-11-02 17:17] VITALS: BP 122/59
[2018-11-02 23:18] VITALS: BP 120/64
[2018-11-03 08:12] LABS: BASOPHILS 0.8 % (0-2); EOSINOPHILS 7.4 % (0-7); HEMATOCRIT 27.2 % (42.0-54.0); HEMOGLOBIN 8.6 g/dL (13.5-17.5); IMMATURE GRANULOCYTES 0.1 % (0-5); LYMPHOCYTES 19.7 % (15-50); MCH 28.2 pg (26.0-34.0); MCHC 31.6 g/dL (31.0-37.0); MCV 89.2 fL (80.0-100.0); MEAN PLATELET VOLUME 10.8 fL (7.4-10.4); MONOCYTES 9.7 % (2-11); NEUTROPHILS 62.3 % (40-80); PLATELET COUNT 412 10x3/uL (130-400); RBC 3.05 10x6/uL (4.20-6.10); RDW 14.8 % (11.5-14.5); WBC 7.2 10x3/uL (4.8-10.8)
[2018-11-03 08:23] LABS: ANION GAP 12.1 mmol/L (8-16); CALCIUM 8.2 mg/dL (8.5-10.1); CREATININE - SERUM 1.3 mg/dL (0.6-1.3); POTASSIUM - SERUM 4.1 mmol/L (3.5-5.1)
[2018-11-03 08:24] VITALS: BP 131/69
[2018-11-03 13:00] VITALS: BP 112/46
--- NOTE | 2018-11-03 13:11 | MORECARE ---
CASE MANAGEMENT DISCHARGE SUMMARY PATIENT: FRANCISCO JAVIER LÓPEZ UNIT: [id number] ADM DATE: 10/07/18 AGE: 78 : 41 SEX: M ROOM/BED: D.1212 AUTHOR: JUAN,DOC PHYSICIAN: REFERRING PHYSICIAN: PAIGE AGUIRRE MD DATE OF SERVICE: 11/03/18 Discharge Plan Patient Name: FRANCISCO JAVIER LÓPEZ Facility: [facility]:[place] : 1940 Planned Disposition: Anticipated Discharge Date: Discharge Date: Expected LOS: Initial Reviewer: [email or web address] Initial Review Date: 10/07/2018 Generated: 11/03/18 2:10 pm Comments DCP- Discharge Planning Updated by [id number]: Yane Cason on 11/03/18 12:[address] LATE ENTRY 1030 PATIENT'S NEPHEW HAS BEEN VISITING THIS AM. HE ANXIOUSLY AWAITS THE DECISION REGARDING ADMISSION TO [facility]. CM RECEIVED TC THIS AM REQUESTING UPDATED INFORMATION WHICH WAS FAXED. CONFIRMED RECEIPT. DCP- Discharge Planning Updated by [id number]: Yaen Cason on 11/01/18 11:[address] Late Entry 1015 Patient's nephew and sister in law at the bedside this am. They requested an update from case management associate.CM reviewed CM notes. Introduced myself to the family members. Provided updated information. Explained we are presently awaiting insurance authorization. Advised that all clinical information has been forwarded to [facility] as per their request. Contact information provided. DCP- Discharge Planning Updated by [id number]: Catherine Sterling on 10/31/18 4:[address] Late entry for 16:00. CM received call back from [facility]. Facility is in network with patient's insurance. CM faxed records as requested. Auth pending. DCP- Discharge Planning Updated by [id number]: Catherine Sterling on 10/31/18 1:[address] After numerous attempts, CM was finally able to locate family of patient. Patient's NephewFrancisco Javier "Jones" Maribel cell: [phone], home: [phone]. Patient's Niece, Bijal Dueñas cell: [phone]. Margo have instructed CM to send referral for SNF to [facility]. Bijal has already spoken with Faby at [facility] and has CM to fax patient's face sheet so facility can verify insurance benefits. Then Faby will call CM back for remaining referral info. DCP- Discharge Planning Updated by [id number]: Lucero Newmanestela on 10/10/18 3:[address] Spoke with Katelin and she agrees with need for emergent surgery. I called OR and spoke through Chapo in Dr. Sahu's procedure that Katelin agrees with need for emergent surgery. I informed that policy is if the person legally authorized to give consent is incapable of consenting or cannot be contacted, the the treating physician shall document the nature of the emergency in the medical record and proceed with the surgery. CM will continue to follow. DCP- Discharge Planning Updated by [id number]: Lucero Richard on 10/10/18 2:[address] Spoke with Dr. Sahu and informed that we have been unable to locate family. Dr. Frank's office also has no phone number for Lindsey (sister in law). Policy is for the physician to sign the consent. CM will continue to follow and assist with discharge planning/needs. DCP- Discharge Planning Updated by [id number]: Lucero Newmanestela on 10/09/18 10:[address] I called Christine Dickson again, his private memory care program resident, to ask what company she works for. She works for [employer]. [employer] does not have any family contact listed. Christine states he has told me he has family contacts in his [place], but he does not. I called Dr. Frank's office again and reached the answering machine again and informed them of the urgency of trying to find contact information and my call back number. CM will continue to follow and assist with discharge planning/needs. DCP- Discharge Planning Updated by [id number]: Lucero Newmanestela on 10/09/18 8:[address] Spoke with patient regarding family contact. He does have a sister in law (Lindsey López) but is unable to tell me her phone number. I called information for a phone number in [place] (patient states she lives there) and their is no listing. I called his memory care program resident, Christine Dickson at [phone] and she does not have a family contact and she is not his POA. I called Dr. Frank's office and have left a message to return call. CM will continue to follow and assist with discharge planning/needs. DCP- Discharge Planning Updated by [id number]: Alee Nuñez on 10/07/18 10:[address] CM met with patient regarding DC needs/planning. Patient states he lives at the [facility] on the 11th floor, uses elevator to go to his apartment. PCP: Dr. Frank. Pharmacy: [facility], w/delivery. HHS: No. Private chiropractic care: Christine Dickson #[phone]. Patient requires assistance with bathing/dressing. DME: 2 canes, Walker. Voices no other needs @this time. CM will follow and assist with DC needs/plans PRN. Alee Nuñez RN CM DCPIA - Discharge Planning Initial Assessment Updated by [id number]: Alee Nuñez on 10/07/18 11:19 am * Is the patient Alert and Oriented? Yes * How many steps to enter\\exit or inside your home? * PCP Dr. Frank * Pharmacy [facility], w/delivery * Preadmission Environment Home Alone * ADLs Partial Dependent * Partial ADLs (Assistance needed) Bathing Dressing * Equipment Cane * Other Equipment States he has 2 canes, O2 but does not use it * Community resources currently utilized Private Duty Care * Please name any agencies selected above. Patient could not remember the name of Agency. * Can the patient safely return to the preadmission environment? Yes * Has this patient been hospitalized within the prior 30 days at any hospital? No Last DP export: 11/01/18 11:16 am Patient Name: FRANCISCO JAVIER LÓPEZ Page [id number] at 1311 All edits/amendments must be made on the electronic document DICTATION DATE: 11/03/18 131 CARTOON ANIMATOR: MANJIT 11/03/18 131 RPT#: [id number] DC DATE: STATUS: ADM IN [facility] [address] [place] [address] END OF REPORT
[2018-11-03 16:54] VITALS: BP 121/64
[2018-11-03 20:00] VITALS: BP 127/69
[2018-11-04] VITALS: BP 112/52
[2018-11-04 04:00] VITALS: BP 123/68
[2018-11-04 07:27] VITALS: BP 127/61
[2018-11-04 07:49] LABS: BASOPHILS 0.9 % (0-2); EOSINOPHILS 7.2 % (0-7); HEMATOCRIT 27.1 % (42.0-54.0); HEMOGLOBIN 8.6 g/dL (13.5-17.5); IMMATURE GRANULOCYTES 0.1 % (0-5); LYMPHOCYTES 22.8 % (15-50); MCH 28.4 pg (26.0-34.0); MCHC 31.7 g/dL (31.0-37.0); MCV 89.4 fL (80.0-100.0); MONOCYTES 8.8 % (2-11); NEUTROPHILS 60.2 % (40-80); PLATELET COUNT 394 10x3/uL (130-400); RBC 3.03 10x6/uL (4.20-6.10); RDW 15.2 % (11.5-14.5); WBC 7.8 10x3/uL (4.8-10.8)
[2018-11-04 07:58] LABS: ANION GAP 13.9 mmol/L (8-16); CALCIUM 8.5 mg/dL (8.5-10.1); CARBON DIOXIDE 29.3 mmol/L (21.0-32.0); CREATININE - SERUM 1.3 mg/dL (0.6-1.3); POTASSIUM - SERUM 4.2 mmol/L (3.5-5.1)
--- NOTE | 2018-11-04 10:44 | MORECARE ---
CASE MANAGEMENT DISCHARGE SUMMARY PATIENT: FRANCISCO JAVIER LÓPEZ UNIT: [id number] ADM DATE: 10/07/18 AGE: 78 : 41 SEX: M ROOM/BED: D.1212 AUTHOR: JUAN,DOC PHYSICIAN: REFERRING PHYSICIAN: PAIGE AGUIRRE MD DATE OF SERVICE: 11/04/18 Discharge Plan Patient Name: FRANCISCO JAVIER LÓPEZ Facility: [facility]:[place] : 1940 Planned Disposition: Shelter Facility Anticipated Discharge Date: 11/04/18 Discharge Date: Expected LOS: 28 Initial Reviewer: [email or web address] Initial Review Date: 10/07/2018 Generated: 11/04/18 11:44 am Comments DCP- Discharge Planning Updated by [id number]: Yane Cason on 11/03/18 12:[address] LATE ENTRY 1030 PATIENT'S NEPHEW HAS BEEN VISITING THIS AM. HE ANXIOUSLY AWAITS THE DECISION REGARDING ADMISSION TO [facility]. CM RECEIVED TC THIS AM REQUESTING UPDATED INFORMATION WHICH WAS FAXED. CONFIRMED RECEIPT. DCP- Discharge Planning Updated by [id number]: Yane Cason on 11/01/18 11:[address] Late Entry 1015 Patient's nephew and sister in law at the bedside this am. They requested an update from mental health case manager.CM reviewed CM notes. Introduced myself to the family members. Provided updated information. Explained we are presently awaiting insurance authorization. Advised that all clinical information has been forwarded to [facility] as per their request. Contact information provided. DCP- Discharge Planning Updated by [id number]: Catherine Sterling on 10/31/18 4:[address] Late entry for 16:00. CM received call back from [facility]. Facility is in network with patient's insurance. CM faxed records as requested. Auth pending. DCP- Discharge Planning Updated by [id number]: Catherine Sterling on 10/31/18 1:[address] After numerous attempts, CM was finally able to locate family of patient. Patient's NephewFrancisco Javier "Jones" Maribel cell: [phone], home: [phone]. Patient's Niece, Bijal Dueñas cell: [phone]. Gene and Bijal have instructed CM to send referral for SNF to [facility]. Bijal has already spoken with Faby at [facility] and has CM to fax patient's face sheet so facility can verify insurance benefits. Then Faby will call CM back for remaining referral info. DCP- Discharge Planning Updated by [id number]: Lucero Newmanestela on 10/10/18 3:[address] Spoke with Katelin and she agrees with need for emergent surgery. I called OR and spoke through Chapo in Dr. Sahu's procedure that Katelin agrees with need for emergent surgery. I informed that policy is if the person legally authorized to give consent is incapable of consenting or cannot be contacted, the the treating physician shall document the nature of the emergency in the medical record and proceed with the surgery. CM will continue to follow. DCP- Discharge Planning Updated by [id number]: Lucero Richard on 10/10/18 2:[address] Sp[address] Dr. Sahu and informed that we have been unable to locate family. Dr. Frank's office also has no phone number for Lindsey (sister in law). Policy is for the physician to sign the consent. CM will continue to follow and assist with discharge planning/needs. DCP- Discharge Planning Updated by [id number]: Lucero Newmanestela on 10/09/18 10:[address] I called Christine Dickson again, his private family day care worker, to ask what company she works for. She works for [employer]. [employer] does not have any family contact listed. Christine states he has told me he has family contacts in his [place], but he does not. I called Dr. Frank's office again and reached the answering machine again and informed them of the urgency of trying to find contact information and my call back number. CM will continue to follow and assist with discharge planning/needs. DCP- Discharge Planning Updated by [email or web address]: Lucero Newmanestela on 10/09/18 8:[address] Spoke with patient regarding family contact. He does have a sister in law (Lindsey López) but is unable to tell me her phone number. I called information for a phone number in [place] (patient states she lives there) and their is no listing. I called his family day care worker, Christine Dickson at [phone] and she does not have a family contact and she is not his POA. I called Dr. Frank's office and have left a message to return call. CM will continue to follow and assist with discharge planning/needs. DCP- Discharge Planning Updated by [id number]: Alee Nuñez on 10/07/18 10:[address] CM met with patient regarding DC needs/planning. Patient states he lives at the [facility] on the 11th floor, uses elevator to go to his apartment. PCP: Dr. Frank. Pharmacy: [facility], w/delivery. HHS: No. Private neurocritical care physician: Christine Dickson #[phone]. Patient requires assistance with bathing/dressing. DME: 2 canes, Walker. Voices no other needs @this time. CM will follow and assist with DC needs/plans PRN. Alee Nuñez RN CM DCPIA - Discharge Planning Initial Assessment Updated by [id number]: Alee Nuñez on 10/07/18 11:19 am * Is the patient Alert and Oriented? Yes * How many steps to enter\\exit or inside your home? * PCP Dr. Frank * Pharmacy [facility], w/delivery * Preadmission Environment Home Alone * ADLs Partial Dependent * Partial ADLs (Assistance needed) Bathing Dressing * Equipment Cane * Other Equipment States he has 2 canes, O2 but does not use it * Community resources currently utilized Private Duty Care * Please name any agencies selected above. Patient could not remember the name of Agency. * Can the patient safely return to the preadmission environment? Yes * Has this patient been hospitalized within the prior 30 days at any hospital? No Last DP export: 11/03/18 12:11 pm Patient Name: FRANCISCO JAVIER LÓPEZ Page [phone] at 1044 All edits/amendments must be made on the electronic document DICTATION DATE: 11/04/18 104 [facility] CONSULTANT: MANJIT 11/04/18 1044 RPT#: [id number] DC DATE: STATUS: ADM IN [facility] [address] [place] [address] END OF REPORT
[2018-11-04] MEDS ORDERED: CARAFATE1 G PO (10:58)
[2018-11-04] MEDS ORDERED: PROTONIX FOR OR40 MG PO (10:58)
--- NOTE | 2018-11-04 11:06 | MORECARE ---
CASE MANAGEMENT DISCHARGE SUMMARY PATIENT: FRANCISCO JAVIER LÓPEZ UNIT: [id number] ADM DATE: 10/07/18 AGE: 78 : 41 SEX: M ROOM/BED: D.1212 AUTHOR: JUANDOC PHYSICIAN: REFERRING PHYSICIAN: PAIGE AGUIRRE MD DATE OF SERVICE: 11/04/18 Discharge Plan Patient Name: FRANCISCO JAVIER LÓPEZ [facility] [facility] 1940 Planned Disposition: Assisted Facility Anticipated Discharge Date: 11/04/18 Discharge Date: Expected LOS: 28 Initial Reviewer: [email or web address] Initial Review Date: 10/07/2018 Generated: 11/04/18 12:06 pm Comments DCP- Discharge Planning Updated by [email or web address]: Eunice Domingo on 11/04/18 10:[address] Patient Name: FRANCISCO JAVIER LÓPEZ Admission Status: ER Accout number: [id number] Admission Date: 10-07-2018 : 1940 Admission Diagnosis:PERFORATION OF INTESTINE (NONTRAUMATIC) Attending: PAIGE AGUIRRE Current LOS: 28 Anticipated DC Date: 11-04-2018 Planned Disposition: Assisted Facility Primary Insurance: [facility] MEDICARE SOLUTIONS Discharge Planning Comments: CM SPOKE WITH [facility] AND THEY WILL ACCEPT THE PATIENT. CM OR NURSING STAFF TO CALL [facility] AT [phone] WHEN DISCHARGE IS VERIFIED BY . Chief Dog License Inspector: Eunice Domingo Appended by Eunice Domingo on 11/04/2018 11:04 RN CHILD: CM SPOKE WITH LEYDA MATHEWS AND SHE WILL PUT DC ORDERS IN. RN TO CALL REPORT TO DEBORAH AT [facility] AT [phone]. FADI AT [facility] WILL SEND VAN TO MANAGER LSW PATIENT BETWEEN 1300 AND 1330 TODAY. DCP- Discharge Planning Updated by [id number]: Yane Cason on 11/03/18 12:[address] LATE ENTRY 1030 PATIENT'S NEPHEW HAS BEEN VISITING THIS AM. HE ANXIOUSLY AWAITS THE DECISION REGARDING ADMISSION TO [facility]. CM RECEIVED TC THIS AM REQUESTING UPDATED INFORMATION WHICH WAS FAXED. CONFIRMED RECEIPT. DCP- Discharge Planning Updated by [id number]: Yane Cason on 11/01/18 11:[address] Late Entry 1015 Patient's nephew and sister in law at the bedside this am. They requested an update from case hardener.CM reviewed CM notes. Introduced myself to the family members. Provided updated information. Explained we are presently awaiting insurance authorization. Advised that all clinical information has been forwarded to [facility] as per their request. Contact information provided. DCP- Discharge Planning Updated by [email or web address]: Catherine Asher on 10/31/18 4:[address] Late entry for 16:00. CM received call back from [facility]. Facility is in network with patient's insurance. CM faxed records as requested. Auth pending. DCP- Discharge Planning Updated by [id number]: Catherine Asher on 10/31/18 1:[address] After numerous attempts, CM was finally able to locate family of patient. Patient's NephewFrancisco Javier (Gene) cell: [phone], home: [phone]. Patient's Niece, Bijal Dueñas cell: [phone]. Jones and Bijal have instructed CM to send referral for SNF to [facility]. Bijal has already spoken with Fadi at [facility] and has CM to fax patient's face sheet so facility can verify insurance benefits. Then Fadi will call CM back for remaining referral info. DCP- Discharge Planning Updated by [id number]: Lucero Ramos on 10/10/18 3:[address] Spoke with Katelin and she agrees with need for emergent surgery. I called OR and spoke through Chapo in Dr. Sahu's procedure that Katelin agrees with need for emergent surgery. I informed that policy is if the person legally authorized to give consent is incapable of consenting or cannot be contacted, the the treating physician shall document the nature of the emergency in the medical record and proceed with the surgery. CM will continue to follow. DCP- Discharge Planning Updated by [id number]: Lucero Ramos on 10/10/18 2:[address] Sp[address] Dr. Sahu and informed that we have been unable to locate family. Dr. Frank's office also has no phone number for Lindsey (sister in law). Policy is for the physician to sign the consent. CM will continue to follow and assist with discharge planning/needs. DCP- Discharge Planning Updated by [email or web address]: Lucero Ramos on 10/09/18 10:[address] I called Christine Dickson again, his private daycare teacher, to ask what company she works for. She works for [employer]. [employer] does not have any family contact listed. Christine states he has told me he has family contacts in his billfold, but he does not. I called Dr. Frank's office again and reached the answering machine again and informed them of the urgency of trying to find contact information and my call back number. CM will continue to follow and assist with discharge planning/needs. DCP- Discharge Planning Updated by [id number]: Lucero Ramos on 10/09/18 8:[address] Spoke with patient regarding family contact. He does have a sister in law (Lindsey López) but is unable to tell me her phone number. I called information for a phone number in [place] (patient states she lives there) and their is no listing. I called his daycare teacher, Chirstine Dickson at [phone] and she does not have a family contact and she is not his POA. I called Dr. Frank's office and have left a message to return call. CM will continue to follow and assist with discharge planning/needs. DCP- Discharge Planning Updated by [id number]: Alee Nuñez on 10/07/18 10:[address] CM met with patient regarding DC needs/planning. Patient states he lives at the [facility] on the 11th floor, uses elevator to go to his apartment. PCP: Dr. Frank. Pharmacy: [facility], w/delivery. HHS: No. Private long term care phlebotomist: Christine Dickson #[phone]. Patient requires assistance with bathing/dressing. DME: 2 canes, Walker. Voices no other needs @this time. CM will follow and assist with DC needs/plans PRN. Alee Nuñez RN, CM DCPIA - Discharge Planning Initial Assessment Updated by [id number]: Alee Nuñez on 10/07/18 11:19 am * Is the patient Alert and Oriented? Yes * How many steps to enter\exit or inside your home? * PCP Dr. Frank * Pharmacy [facility], w/delivery * Preadmission Environment Home Alone * ADLs Partial Dependent * Partial ADLs (Assistance needed) Bathing Dressing * Equipment Cane * Other Equipment States he has 2 canes, O2 but does not use it * Community resources currently utilized Private Duty Care * Please name any agencies selected above. Patient could not remember the name of Agency. * Can the patient safely return to the preadmission environment? Yes * Has this patient been hospitalized within the prior 30 days at any hospital? No Last DP export: 11/04/18 9:44 am Patient Name: FRANCISCO JAVIER LÓPEZ Page [id number] at 1106 All edits/amendments must be made on the electronic document DICTATION DATE: 11/04/18 110 MEDICAL OFFICE SUPERVISOR: MANJIT 11/04/18 110 RPT#: [id number] CT DATE: STATUS: ADM IN [facility] [address] [place] [address] END OF REPORT
[2018-11-04 11:43] VITALS: BP 122/53
--- NOTE | 2018-11-04 12:07 | MORECARE ---
CASE MANAGEMENT DISCHARGE SUMMARY PATIENT: FRANCISCO JAVIER LÓPEZ UNIT: [id number] ADM DATE: 10/07/18 AGE: 78 : 41 SEX: M ROOM/BED: D.1212 AUTHOR: JUANDOC PHYSICIAN: REFERRING PHYSICIAN: PAIGE AGUIRRE MD DATE OF SERVICE: 11/04/18 Discharge Plan Patient Name: FRANCISCO JAVIER LÓPEZ [facility] [facility] 1940 Planned Disposition: Snf Facility Anticipated Discharge Date: 11/04/18 Discharge Date: Expected LOS: 28 Initial Reviewer: [id number] Initial Review Date: 10/07/2018 Generated: 11/04/18 1:07 pm Comments DCP- Discharge Planning Updated by [id number]: Eunice Domingo on 11/04/18 10:[address] Patient Name: FRANCISCO JAVIER LÓPEZ Admission Status: ER Accout number: [id number] Admission Date: 10-07-2018 : 1940 Admission Diagnosis:PERFORATION OF INTESTINE (NONTRAUMATIC) Attending: PAIGE AGUIRRE Current LOS: 28 Anticipated DC Date: 11-04-2018 Planned Disposition: Snf Facility Primary Insurance: [facility] MEDICARE SOLUTIONS Discharge Planning Comments: CM SPOKE WITH [facility] AND THEY WILL ACCEPT THE PATIENT. CM OR NURSING STAFF TO CALL [facility] AT [phone] WHEN DISCHARGE IS VERIFIED BY . Supervisor Tan Room: Eunice Domingo Appended by Eunice Domingo on 11/04/2018 11:04 NOTCHING MACHINE OPERATOR: CM SPOKE WITH LEYDA MATHEWS AND SHE WILL PUT DC ORDERS IN. RN TO CALL REPORT TO DEBORAH AT [facility] AT [phone]. FADI AT [facility] WILL SEND VAN TO BELT MAKER HELPER PATIENT BETWEEN 1300 AND 1330 TODAY. DCP- Discharge Planning Updated by [id number]: Yane Cason on 11/03/18 12:[address] LATE ENTRY 1030 PATIENT'S NEPHEW HAS BEEN VISITING THIS AM. HE ANXIOUSLY AWAITS THE DECISION REGARDING ADMISSION TO [facility]. CM RECEIVED TC THIS AM REQUESTING UPDATED INFORMATION WHICH WAS FAXED. CONFIRMED RECEIPT. DCP- Discharge Planning Updated by [id number]: Yane Cason on 11/01/18 11:[address] Late Entry 1015 Patient's nephew and sister in law at the bedside this am. They requested an update from briefcase sewer.CM reviewed CM notes. Introduced myself to the family members. Provided updated information. Explained we are presently awaiting insurance authorization. Advised that all clinical information has been forwarded to [facility] as per their request. Contact information provided. DCP- Discharge Planning Updated by [id number]: Catherine Asher on 10/31/18 4:[address] Late entry for 16:00. CM received call back from [facility]. Facility is in network with patient's insurance. CM faxed records as requested. Auth pending. DCP- Discharge Planning Updated by [id number]: Catherine Asher on 10/31/18 1:[address] After numerous attempts, CM was finally able to locate family of patient. Patient's NephewFrancisco Javier (Gene) cell: [phone], home: [phone]. Patient's Niece, Bijal Dueñas cell: [phone]. Jones and Bijal have instructed CM to send referral for SNF to [facility]. Bijal has already spoken with Fadi at [facility] and has CM to fax patient's face sheet so facility can verify insurance benefits. Then Fadi will call CM back for remaining referral info. DCP- Discharge Planning Updated by [id number]: Lucero Ramos on 10/10/18 3:[address] Spoke with Katelin and she agrees with need for emergent surgery. I called OR and spoke through Chapo in Dr. Sahu's procedure that Katelin agrees with need for emergent surgery. I informed that policy is if the person legally authorized to give consent is incapable of consenting or cannot be contacted, the the treating physician shall document the nature of the emergency in the medical record and proceed with the surgery. CM will continue to follow. DCP- Discharge Planning Updated by [id number]: Lucero Ramos on 10/10/18 2:[address] Spoke with Dr. Sahu and informed that we have been unable to locate family. Dr. Farnk's office also has no phone number for Lindsey (sister in law). Policy is for the physician to sign the consent. CM will continue to follow and assist with discharge planning/needs. DCP- Discharge Planning Updated by [id number]: Lucero Ramos on 10/09/18 10:[address] I called Christine Dickson again, his private healthcare administrative assistant, to ask what company she works for. She works for [employer]. [employer] does not have any family contact listed. Christine states he has told me he has family contacts in his billfold, but he does not. I called Dr. Frank's office again and reached the answering machine again and informed them of the urgency of trying to find contact information and my call back number. CM will continue to follow and assist with discharge planning/needs. DCP- Discharge Planning Updated by [id number]: Lucero Ramos on 10/09/18 8:[address] Spoke with patient regarding family contact. He does have a sister in law (Lindsey López) but is unable to tell me her phone number. I called information for a phone number in [place] (patient states she lives there) and their is no listing. I called his healthcare administrative assistant, Christine Dickson at [phone] and she does not have a family contact and she is not his POA. I called Dr. Frank's office and have left a message to return call. CM will continue to follow and assist with discharge planning/needs. DCP- Discharge Planning Updated by [id number]: Alee Nuñez on 10/07/18 10:[address] CM met with patient regarding DC needs/planning. Patient states he lives at the [facility] on the 11th floor, uses elevator to go to his apartment. PCP: Dr. Frank. Pharmacy: [facility], w/delivery. HHS: No. Private child care worker: Christine Dickson #[phone]. Patient requires assistance with bathing/dressing. DME: 2 canes, Walker. Voices no other needs @this time. CM will follow and assist with DC needs/plans PRN. Alee Nuñez RN, CM DCPIA - Discharge Planning Initial Assessment Updated by [id number]: Alee Nuñez on 10/07/18 11:19 am * Is the patient Alert and Oriented? Yes * How many steps to enter\exit or inside your home? * PCP Dr. Frank * Pharmacy [facility], w/delivery * Preadmission Environment Home Alone * ADLs Partial Dependent * Partial ADLs (Assistance needed) Bathing Dressing * Equipment Cane * Other Equipment States he has 2 canes, O2 but does not use it * Community resources currently utilized Private Duty Care * Please name any agencies selected above. Patient could not remember the name of Agency. * Can the patient safely return to the preadmission environment? Yes * Has this patient been hospitalized within the prior 30 days at any hospital? No Coverage Notice Reviewer: [id number] - Eunice Domingo Notice Issued Date-Time: 11/04/2018 12:02 Notice Type: IM Discharge Notice Notice Delivered To: Family Member Relationship to Patient: Nephew Immigration Manager Name: Delivery Method: HAND - Hand Delivered Mala Days: Prior Verbal Notification: Recipient Understood Notice: Yes Recipient Signature: Yes Med Rec Note Co-signed by Attending: Coverage Notice Comment: Last DP export: 11/04/18 10:06 am Patient Name: FRANCISCO JAVIER LÓPEZ Page 85355 at 1207 All edits/amendments must be made on the electronic document DICTATION DATE: 11/04/18 1206 HUMAN RESOURCES COMPLIANCE MANAGER: MANJIT 11/04/18 1206 RPT#: [id number] DC DATE: STATUS: ADM IN [facility] [address] [place] [address] END OF REPORT
--- NOTE | 2018-11-07 15:50 | MORECARE ---
CASE MANAGEMENT DISCHARGE SUMMARY PATIENT: FRANCISCO JAVIER LÓPEZ UNIT: [id number] ADM DATE: 10/07/18 AGE: 78 : 41 SEX: M ROOM/BED: D.1212 AUTHOR: JUAN,DOC PHYSICIAN: REFERRING PHYSICIAN: PAIGE AGUIRRE MD DATE OF SERVICE: 11/07/18 Discharge Plan Patient Name: FRANCISCO JAVIER LÓPEZ Facility: [facility]:[place] : 1940 Planned Disposition: Intermediate Facility Anticipated Discharge Date: 11/04/18 Discharge Date: 11/04/2018 Expected LOS: 28 Initial Reviewer: [id number] Initial Review Date: 10/07/2018 Generated: 11/07/18 4:49 pm Comments DCP- Discharge Planning Updated by [id number]: Eunice Domingo on 11/04/18 10:[address] Patient Name: FRANCISCO JAVIER LÓPEZ Admission Status: ER Accout number: [id number] Admission Date: 10-07-2018 : 1940 Admission Diagnosis:PERFORATION OF INTESTINE (NONTRAUMATIC) Attending: PAIGE AGUIRRE Current LOS: 28 Anticipated DC Date: 11-04-2018 Planned Disposition: Intermediate Facility Primary Insurance: [facility] MEDICARE SOLUTIONS Discharge Planning Comments: CM SPOKE WITH [facility] AND THEY WILL ACCEPT THE PATIENT. CM OR NURSING STAFF TO CALL [facility] AT [phone] WHEN DISCHARGE IS VERIFIED BY . Machinist/Machine Builder: Eunice Domingo Appended by Eunice Domingo on 11/04/2018 11:04 GMAT INSTRUCTOR: CM SPOKE WITH LEYDA MATHEWS AND SHE WILL PUT DC ORDERS IN. RN TO CALL REPORT TO DEBORAH AT [facility] AT [phone]. FADI AT [facility] WILL SEND VAN TO AIRWAY TRAFFIC CONTROLLER PATIENT BETWEEN 1300 AND 1330 TODAY. DCP- Discharge Planning Updated by [id number]: Yane Cason on 11/03/18 12:[address] LATE ENTRY 1030 PATIENT'S NEPHEW HAS BEEN VISITING THIS AM. HE ANXIOUSLY AWAITS THE DECISION REGARDING ADMISSION TO [facility]. CM RECEIVED TC THIS AM REQUESTING UPDATED INFORMATION WHICH WAS FAXED. CONFIRMED RECEIPT. DCP- Discharge Planning Updated by [id number]: Yane Cason on 11/01/18 11:[address] Late Entry 1015 Patient's nephew and sister in law at the bedside this am. They requested an update from case resolution specialist.CM reviewed CM notes. Introduced myself to the family members. Provided updated information. Explained we are presently awaiting insurance authorization. Advised that all clinical information has been forwarded to [facility] as per their request. Contact information provided. DCP- Discharge Planning Updated by [id number]: Catherinekirt Sterling on 10/31/18 4:[address] Late entry for 16:00. CM received call back from [facility]. Facility is in network with patient's insurance. CM faxed records as requested. Auth pending. DCP- Discharge Planning Updated by [id number]: Catherine Asher on 10/31/18 1:[address] After numerous attempts, CM was finally able to locate family of patient. Patient's Nephew, Francisco Javier López (Gene) cell: [phone], home: [phone]. Patient's Niece, Bijal Dueñas cell: [phone]. Jones and Bijal have instructed CM to send referral for SNF to [facility]. Bijal has already spoken with Fadi at [facility] and has CM to fax patient's face sheet so facility can verify insurance benefits. Then Fadi will call CM back for remaining referral info. DCP- Discharge Planning Updated by [id number]: Lucero Ramos on 10/10/18 3:[address] Spoke with Katelin and she agrees with need for emergent surgery. I called OR and spoke through Chapo in Dr. Sahu's procedure that Katelin agrees with need for emergent surgery. I informed that policy is if the person legally authorized to give consent is incapable of consenting or cannot be contacted, the the treating physician shall document the nature of the emergency in the medical record and proceed with the surgery. CM will continue to follow. DCP- Discharge Planning Updated by [id number]: Lucero Ramos on 10/10/18 2:[address] Dr. Sahu and informed that we have been unable to locate family. Dr. Frank's office also has no phone number for Lindsey (sister in law). Policy is for the physician to sign the consent. CM will continue to follow and assist with discharge planning/needs. DCP- Discharge Planning Updated by [id number]: Lucero Rmaos on 10/09/18 10:[address] I called Christine Dickson again, his private palliative care physician, to ask what company she works for. She works for [employer]. [employer] does not have any family contact listed. Christine states he has told me he has family contacts in his billfold, but he does not. I called Dr. Frank's office again and reached the answering machine again and informed them of the urgency of trying to find contact information and my call back number. CM will continue to follow and assist with discharge planning/needs. DCP- Discharge Planning Updated by [id number]: Lucero Ramos on 10/09/18 8:[address] Spoke with patient regarding family contact. He does have a sister in law (Lindsey López) but is unable to tell me her phone number. I called information for a phone number in [place] (patient states she lives there) and their is no listing. I called his palliative care physician, Christine Dickson at [phone] and she does not have a family contact and she is not his POA. I called Dr. Frank's office and have left a message to return call. CM will continue to follow and assist with discharge planning/needs. DCP- Discharge Planning Updated by [id number]: Alee Nuñez on 10/07/18 10:[address] CM met with patient regarding DC needs/planning. Patient states he lives at the [facility] on the 11th floor, uses elevator to go to his apartment. PCP: Dr. Frank. Pharmacy: [facility], w/delivery. HHS: No. Private manager respiratory care: Christine Dickson #[phone]. Patient requires assistance with bathing/dressing. DME: 2 canes, Walker. Voices no other needs @this time. CM will follow and assist with DC needs/plans PRN. Alee Nuñez RN, CM DCPIA - Discharge Planning Initial Assessment Updated by [id number]: Alee Nuñez on 10/07/18 11:19 am * Is the patient Alert and Oriented? Yes * How many steps to enter\exit or inside your home? * PCP Dr. Frank * Pharmacy [facility], w/delivery * Preadmission Environment Home Alone * ADLs Partial Dependent * Partial ADLs (Assistance needed) Bathing Dressing * Equipment Cane * Other Equipment States he has 2 canes, O2 but does not use it * Community resources currently utilized Private Duty Care * Please name any agencies selected above. Patient could not remember the name of Agency. * Can the patient safely return to the preadmission environment? Yes * Has this patient been hospitalized within the prior 30 days at any hospital? No Coverage Notice Reviewer: [id number] Bony Domingo Notice Issued Date-Time: 11/04/2018 12:02 Notice Type: IM Discharge Notice Notice Delivered To: Family Member Relationship to Patient: Nephew General Office Clerk Name: Delivery Method: HAND - Hand Delivered Mala Days: Prior Verbal Notification: Recipient Understood Notice: Yes Recipient Signature: Yes Med Rec Note Co-signed by Attending: Coverage Notice Comment: Last DP export: 11/04/18 11:07 am Patient Name: FRANCISCO JAVIER LÓPEZ Page [id number] at 1550 All edits/amendments must be made on the electronic document DICTATION DATE: 11/07/18 1549 SQL DATABASE PROGRAMMER: MANJIT 11/07/18 1549 RPT#: [id number] DC DATE:11/04/18 STATUS: DIS IN [facility] [address] [place] [address] END OF REPORT
== END 2018-11-04 13:45 | DRG 329 ==
LOC: D.ER 08:08 → D.EDHOLD 10:46 → D.MS 10:46 → D.ICU 10-12 20:02 → D.M3 10-23 00:31
PROVIDERS: Emergency Medicine; Family Medicine; Internal Medicine Nephrology; Surgery; ADMIT Family Medicine
PROC: 0DU907Z Supplement Duodenum with Autologous Tissue Substitute, Open Approach (ICD-10-PCS; principal; 2018-10-12 13:18)
DX: K26.5 Chronic or unspecified duodenal ulcer with perforation (principal); K65.1 Peritoneal abscess; R57.8 Other shock; I13.0 Hypertensive heart and chronic kidney disease with heart failure and stage 1 through stage 4 chronic kidney disease, or unspecified chronic kidney disease; N17.9 Acute kidney failure, unspecified; N39.0 Urinary tract infection, site not specified; N18.3 Chronic kidney disease, stage 3 (moderate); I50.9 Heart failure, unspecified

== ENCOUNTER 2018-12-16 07:41 | Emergency (ER) | payer MEDICARE, MEDICAID ==
[~2018-12-16] VITALS: Ht 170.2 cm; Wt 123.2 kg
[~2018-12-16 07:41] MED LIST changes: +CARAFATE1 G PO; +PROTONIX FOR OR40 MG PO
[2018-12-16 07:43] VITALS: Ht 170.2 cm; Wt 123.2 kg
[2018-12-16 09:20] VITALS: BP 122/49
== END 2018-12-16 09:20 | disposition home or self-care (01) ==
LOC: D.ER 07:41
DX: S59.801A Other specified injuries of right elbow, initial encounter (principal); W01.0XXA Fall on same level from slipping, tripping and stumbling without subsequent striking against object, initial encounter; Y93.89 Activity, other specified; Y92.019 Unspecified place in single-family (private) house as the place of occurrence of the external cause; S59.911A Unspecified injury of right forearm, initial encounter